=== PATIENT | female | born 1940 | race Caucasian/White ===

== ENCOUNTER 2018-07-12 12:56 | Inpatient (IN) | payer MEDICARE ==
[2018-07-12] MEDS ORDERED: NORMAL SALINE 1000 ML 1,000 ML IV ONE ×2 (13:55→14:31)
[2018-07-12 14:14] LABS: ABSOLUTE BASOPHILS # (AUTO) 0.1 10^3/uL (0.0-0.2); ABSOLUTE EOSINOPHILS # (AUTO) 0.1 10^3/uL (0.0-0.6); ABSOLUTE LYMPHOCYTES (AUTO) 2.4 10^3/uL (0.5-4.7); ABSOLUTE MONOCYTES (AUTO) 0.7 10^3/uL (0.1-1.4); ABSOLUTE NEUT (AUTO) 8.4 10^3/uL (1.7-8.2); BASOPHILS % (AUTO) 0.9 % (0-2); EOSINOPHILS % (AUTO) 1.1 % (0-6); HEMATOCRIT 36.4 % (36.0-47.0); HEMOGLOBIN 12.5 g/dL (12.0-15.5); LYMPHOCYTES % (AUTO) 20.7 % (13-45); MEAN CORPUSCULAR HEMOGLOBIN 29.8 pg (27.0-33.4); MEAN CORPUSCULAR HGB CONC 34.4 g/dL (32.0-36.0); MEAN CORPUSCULAR VOLUME 87 fl (80-97); MONOCYTES % (AUTO) 5.9 % (3-13); PLATELET COUNT 272 10^3/uL (150-450); RED BLOOD COUNT 4.21 10^6/uL (3.72-5.28); RED CELL DISTRIBUTION WIDTH 13.7 % (11.5-14.0); SEGMENTED NEUTROPHILS % (AUTO) 71.4 % (42-78); TOTAL CELLS COUNTED % (AUTO) 100 %; WHITE BLOOD COUNT 11.8 10^3/uL (4.0-10.5)
[2018-07-12 14:31] LABS: ALANINE AMINOTRANSFERASE 17 U/L (9-52); ALBUMIN 4.7 g/dL (3.5-5.0); ALKALINE PHOSPHATASE 81 U/L (38-126); ANION GAP 13 (5-19); ASPARTATE AMINO TRANSFERASE 28 U/L (14-36); BILIRUBIN,DIRECT 0.4 mg/dL (0.0-0.4); BILIRUBIN,TOTAL 0.7 mg/dL (0.2-1.3); BLOOD UREA NITROGEN 32 mg/dL (7-20); CALCIUM 10.3 mg/dL (8.4-10.2); CARBON DIOXIDE 22 mmol/L (22-30); CHLORIDE 105 mmol/L (98-107); GLUCOSE 141 mg/dL (75-110); SODIUM 140.3 mmol/L (137-145); TOTAL PROTEIN 8.1 g/dL (6.3-8.2)
--- NOTE | 2018-07-12 14:32 | ER Document Report ---
ED Blood Pressure Problem - General Chief Complaint: Blood Pressure Problem Stated Complaint: DIZZINESS Time Seen by Provider: 07/12/18 14:17 Notes: 77-year-old female patient emergency department chief complaint of near syncopal episode. Patient states that she went into the doctor's office today to talk to them about some of the diarrhea she has been having. Has a history of C. difficile. Was on therapy on and off for approximately 6 months. Recently had a UTI. Was placed on Bactrim and Cipro. Today, went to the doctor to talk about this and all of a sudden had generalized weakness and almost passed out. Blood pressure was low. Patient sent here for further evaluation. TRAVEL OUTSIDE OF THE [place] IN LAST 30 DAYS: No - HPI Patient complains to provider of: Low blood pressure Onset: Just prior to arrival Onset/Duration: Sudden Quality of pain: No pain Severity: Moderate Pain Level: Denies Problem is: New problem Associated symptoms: Dizziness, Weakness - Related Data Allergies/Adverse Reactions: No Known Allergies Allergy (Verified 03/20/13 14:28) Past Medical History - General Information source: Patient - Social History Smoking Status: Current Every Day Smoker Drug Abuse: None Lives with: Alone Family History: Reviewed & Not Pertinent Patient has suicidal ideation: No Patient has homicidal ideation: No - Past Medical History Cardiac Medical History: Reports: Hx Congestive Heart Failure, Hx Coronary Artery Disease, Hx Heart Attack, Hx Hypertension Renal/ Medical History: Denies: Hx Peritoneal Dialysis GI Medical History: Reports: Hx Gastroesophageal Reflux Disease Past Surgical History: Reports: Hx Cardiac Surgery - CABG, Hx Pacemaker - Defibrillator - Immunizations Hx Diphtheria, Pertussis, Tetanus Vaccination: - unknown Physical Exam - Vital signs Vitals: Resp BP Pulse Ox 17 93/42 L 99 07/12/18 13:18 07/12/18 13:18 07/12/18 13:18 Interpretation: Hypotensive - General General appearance: Appears well, Alert - HEENT Head: Normocephalic, Atraumatic Eyes: Normal Pupils: PERRL - Respiratory Respiratory status: No respiratory distress Chest status: Nontender Breath sounds: Normal Chest palpation: Normal - Cardiovascular Rhythm: Regular Heart sounds: Normal auscultation Murmur: No - Abdominal Inspection: Normal Distension: No distension Bowel sounds: Normal Tenderness: Nontender Organomegaly: No organomegaly - Back Back: Normal, Nontender - Extremities General upper extremity: Normal inspection, Nontender, Normal color, Normal ROM , Normal temperature General lower extremity: Normal inspection, Nontender, Normal color, Normal ROM , Normal temperature, Normal weight bearing. No: Julissa's sign - Neurological Neuro grossly intact: Yes Cognition: Normal Orientation: AAOx4 [place] Coma Scale Eye Opening: Spontaneous [place] Coma Scale Verbal: Oriented [place] Coma Scale Motor: Obeys Commands [place] Coma Scale Total: 15 Speech: Normal Motor strength normal: LUE, RUE, LLE, RLE Sensory: Normal - Psychological Associated symptoms: Normal affect, Normal mood - Skin Skin Temperature: Warm Skin Moisture: Dry Skin Color: Normal Course - Re-evaluation Re-evalutation: 07/12/18 18:45 Patient's presentation is complicated due to the fact that she has had C. difficile. I did initially start her on some Macrobid and oral vancomycin because she has had 2 loose stools while she is in the ER. I have consulted with the hospitalist. At this time we feel that she could have early sepsis so we are starting her on some broad-spectrum antibiotics. She has had 2 L. Will admit at this time in stable condition. 07/12/18 18:47 Laboratory 07/12/18 07/12/18 07/12/18 13:06 13:06 13:06 WBC 11.8 H RBC 4.21 Hgb 12.5 Hct 36.4 MCV 87 MCH 29.8 MCHC 34.4 RDW 13.7 Plt Count 272 Seg Neutrophils % 71.4 Lymphocytes % 20.7 Monocytes % 5.9 Eosinophils % 1.1 Basophils % 0.9 Absolute Neutrophils 8.4 H Absolute Lymphocytes 2.4 Absolute Monocytes 0.7 Absolute Eosinophils 0.1 Absolute Basophils 0.1 Sodium 140.3 Potassium 5.0 Chloride 105 Carbon Dioxide 22 Anion Gap 13 BUN 32 H Creatinine 1.39 H Est GFR ( Amer) 45 L Est GFR (Non-Af Amer) 37 L Glucose 141 H Lactic Acid Calcium 10.3 H Total Bilirubin 0.7 Direct Bilirubin 0.4 Neonat Total Bilirubin Not Reportable Neonat Direct Bilirubin Not Reportable Neonat Indirect Bili Not Reportable AST 28 ALT 17 Alkaline Phosphatase 81 Creatine Kinase 37 CK-MB (CK-2) Troponin I Total Protein 8.1 Albumin 4.7 Urine Color Urine Appearance Urine pH Ur Specific [place] Urine Protein Urine Glucose (UA) Urine Ketones Urine Blood Urine Nitrite Urine Bilirubin Urine Urobilinogen Ur Leukocyte Esterase Urine WBC (Auto) Urine RBC (Auto) U Hyaline Cast (Auto) Urine Bacteria (Auto) Squamous Epi Cells Auto U Non-Squamous Epis Auto Urine Mucus (Auto) Urine Ascorbic Acid 07/12/18 07/12/18 07/12/18 13:06 14:40 15:54 WBC RBC Hgb Hct MCV MCH MCHC RDW Plt Count Seg Neutrophils % Lymphocytes % Monocytes % Eosinophils % Basophils % Absolute Neutrophils Absolute Lymphocytes Absolute Monocytes Absolute Eosinophils Absolute Basophils Sodium Potassium Chloride Carbon Dioxide Anion Gap BUN Creatinine Est GFR ( Amer) Est GFR (Non-Af Amer) Glucose Lactic Acid 1.3 Calcium Total Bilirubin Direct Bilirubin Neonat Total Bilirubin Neonat Direct Bilirubin Neonat Indirect Bili AST ALT Alkaline Phosphatase Creatine Kinase CK-MB (CK-2) 0.85 Troponin I < 0.012 Total Protein Albumin Urine Color YELLOW Urine Appearance CLOUDY Urine pH 5.0 Ur Specific [place] 1.012 Urine Protein NEGATIVE Urine Glucose (UA) NEGATIVE Urine Ketones NEGATIVE Urine Blood NEGATIVE Urine Nitrite NEGATIVE Urine Bilirubin NEGATIVE Urine Urobilinogen NEGATIVE Ur Leukocyte Esterase LARGE H Urine WBC (Auto) 67 Urine RBC (Auto) 3 U Hyaline Cast (Auto) 66 Urine Bacteria (Auto) TRACE Squamous Epi Cells Auto 4 U Non-Squamous Epis Auto 1 Urine Mucus (Auto) FEW Urine Ascorbic Acid NEGATIVE 07/12/18 16:40 WBC RBC Hgb Hct MCV MCH MCHC RDW Plt Count Seg Neutrophils % Lymphocytes % Monocytes % Eosinophils % Basophils % Absolute Neutrophils Absolute Lymphocytes Absolute Monocytes Absolute Eosinophils Absolute Basophils Sodium Potassium Chloride Carbon Dioxide Anion Gap BUN Creatinine Est GFR ( Amer) Est GFR (Non-Af Amer) Glucose Lactic Acid Calcium Total Bilirubin Direct Bilirubin Neonat Total Bilirubin Neonat Direct Bilirubin Neonat Indirect Bili AST ALT Alkaline Phosphatase Creatine Kinase CK-MB (CK-2) Troponin I < 0.012 Total Protein Albumin Urine Color Urine Appearance Urine pH Ur Specific [place] Urine Protein Urine Glucose (UA) Urine Ketones Urine Blood Urine Nitrite Urine Bilirubin Urine Urobilinogen Ur Leukocyte Esterase Urine WBC (Auto) Urine RBC (Auto) U Hyaline Cast (Auto) Urine Bacteria (Auto) Squamous Epi Cells Auto U Non-Squamous Epis Auto Urine Mucus (Auto) Urine Ascorbic Acid Chest X-Ray 07/12/18 14:31 IMPRESSION: No significant interval change. No acute findings. Other findings as noted above. - Vital Signs Vital signs: Temp Pulse Resp BP Pulse Ox 97.6 F 60 19 110/59 L 100 07/12/18 13:46 07/12/18 13:54 07/12/18 18:31 07/12/18 18:31 07/12/18 18:31 - Laboratory Result Diagrams: 07/12/18 13:06 07/12/18 13:06 Laboratory results interpreted by me: 07/12/18 07/12/18 07/12/18 13:06 13:06 15:54 WBC 11.8 H Absolute Neutrophils 8.4 H BUN 32 H Creatinine 1.39 H Est GFR ( Amer) 45 L Est GFR (Non-Af Amer) 37 L Glucose 141 H Calcium 10.3 H Ur Leukocyte Esterase LARGE H - EKG Interpretation by Me Additional EKG results interpreted by me: 07/12/18 18:46 Paced ventricular rhythm rate in the 60s. No signs of ischemia. Critical Care Note - Critical Care Note Total time excluding time spent on procedures (mins): 35 Comments: Hypotension Discharge - Discharge Clinical Impression: Colitis, SIRS (systemic inflammatory response syndrome) Hypotension Qualifiers: Hypotension type: unspecified hypotension type Qualified Code(s): I95.9 - Hypotension, unspecified UTI (urinary tract infection) Qualifiers: Urinary tract infection type: site unspecified Hematuria presence: without hematuria Qualified Code(s): N39.0 - Urinary tract infection, site not specified Condition: Good Disposition: ADMITTED INPATIENT Admitting Provider: Hospitalist Unit Admitted: [facility] Referrals: EL REYNOLDS MD [Primary Care Provider] - Follow up as needed
--- NOTE | 2018-07-12 15:12 | RADIOLOGY REPORT (SQ) ---
EXAM DESCRIPTION: CHEST SINGLE VIEW COMPLETED DATE/TIME: 07/12/2018 3:04 pm REASON FOR STUDY: syncope COMPARISON: May 2014 EXAM PARAMETERS: NUMBER OF VIEWS: One view. TECHNIQUE: Single frontal radiographic view of the chest acquired. RADIATION DOSE: NA LIMITATIONS: None. FINDINGS: LUNGS AND PLEURA: No opacities, masses or pneumothorax. No pleural effusion. MEDIASTINUM AND HILAR STRUCTURES: No masses. Contour normal. HEART AND VASCULAR STRUCTURES: Cardiac silhouette is enlarged and unchanged in configuration. BONES: No acute findings. HARDWARE: AICD device is unchanged in position. Patient is status post median sternotomy. OTHER: No other significant finding. IMPRESSION: No significant interval change. No acute findings. Other findings as noted above. TECHNICAL DOCUMENTATION: JOB ID: [id number] [employer]- All Rights Reserved Reading location - IP/workstation name: [email or web address]
[2018-07-12 15:32] LABS: CREATINE KINASE MB 0.85 ng/mL (<4.55)
[2018-07-12 15:33] LABS: TROPONIN I < 0.012 ng/mL
[2018-07-12 16:12] LABS: APPEARANCE,URINE CLOUDY; BILIRUBIN,URINE NEGATIVE (NEGATIVE); COLOR,URINE YELLOW; GLUCOSE, URINE NEGATIVE (NEGATIVE); KETONES,URINE NEGATIVE (NEGATIVE); LEUKOCYTE ESTERASE,URINE LARGE (NEGATIVE); NITRITE,URINE NEGATIVE (NEGATIVE); PROTEIN,URINE NEGATIVE (NEGATIVE); URINE SPECIFIC GRAVITY 1.012; UROBILINOGEN,URINE NEGATIVE mg/dL (<2.0)
[2018-07-12] MEDS ORDERED: NITROFURANTOIN MONOHYD/M-CRYST 100 MG CAPSULE PO ONE (16:50)
[2018-07-12] MEDS ORDERED: VANCOMYCIN HCL INJ 500 MG VIAL PO ONE (16:50)
[2018-07-12] MEDS ORDERED: ONDANSETRON HCL INJ/PF 4 MG/2 ML SDV IV PRN (18:33)
--- NOTE | 2018-07-12 19:05 | PDOC H&P ---
History of Present Illness Admission Date/PCP: EL REYNOLDS MD History of Present Illness: JYOTSNA GANT is a 77 year old female with history of C. difficile, lipidemia, hypertension, coronary artery disease with status post bypass and pacemaker came to the emergency room with complaints of a passing out at primary care physician's office. According to her she is having the loose stools on and off for the last 1 week, finally she went to see the PCP and according to her she is about to fall onto the ground and somebody next to her hold her to keep her balance she felt dizzy at the time. Denies any loss of consciousness. She said she was diagnosed with C. difficile in April this year again she had a blood work was done in June she was given antibiotics she took it for 3 days and symptoms are resolved but for the last 1 week she has this problem on and off. Denies any nausea vomiting denies any constipation denies any fevers denies any headaches chest pains. In the ER patient was given a 2 L of IV fluids. she was hypotensive with at the time of arrival at the ER. Past Medical History Cardiac Medical History: Reports: Congestive Heart Failure, Coronary Artery Disease, Myocardial Infarction, Hypertension GI Medical History: Reports: Gastroesophageal Reflux Disease Past Surgical History Past Surgical History: Reports: Pacemaker - Defibrillator Social History Lives with: Alone Smoking Status: Current Every Day Smoker - Advance Directive Resuscitation Status: Do Not Resuscitate Family History Family History: Reviewed & Not Pertinent Parental Family History Reviewed: Yes Children Family History Reviewed: Yes Sibling(s) Family History Reviewed.: Yes Medication/Allergy Home Medications: Aspirin 81 mg PO DAILY 03/20/13 Furosemide [Lasix 40 mg Tablet] 40 mg PO QAM #30 tablet 03/20/13 Metoprolol Succinate [Toprol XL 25 mg Tablet] 25 mg PO DAILY 03/20/13 Omeprazole [Prilosec 20 mg Capsule] 20 mg PO DAILY 03/20/13 Ondansetron [Zofran Odt 4 mg Tablet] 2 tab PO Q4HP PRN #15 tab.rapdis 05/12/13 Allergies/Adverse Reactions: No Known Allergies Allergy (Verified 03/20/13 14:28) Review of Systems Constitutional: ABSENT: fever(s), night sweats, weight loss Eyes: ABSENT: visual disturbances Ears: ABSENT: hearing changes Cardiovascular: ABSENT: chest pain, dyspnea on exertion, edema, orthropnea, palpitations Respiratory: ABSENT: cough, hemoptysis Gastrointestinal: PRESENT: bloating, diarrhea Neurological: ABSENT: abnormal gait, abnormal speech, confusion, dizziness, focal weakness, syncope Psychiatric: ABSENT: anxiety, depression, homidical ideation, suicidal ideation Physical Exam Vital Signs: Temp Pulse Resp BP Pulse Ox 97.6 F 60 19 110/59 L 100 07/12/18 13:46 07/12/18 13:54 07/12/18 18:31 07/12/18 18:31 07/12/18 18:31 Intake & Output 07/11/18 07/12/18 07/13/18 06:59 06:59 06:59 Intake Total 1999 Balance 1999 Weight 62.142 kg General appearance: PRESENT: no acute distress Head exam: PRESENT: atraumatic Eye exam: PRESENT: PERRLA Teeth exam: PRESENT: poor dentation Neck exam: ABSENT: carotid bruit, JVD, lymphadenopathy, thyromegaly Respiratory exam: PRESENT: clear to auscultation james. ABSENT: rales, rhonchi, wheezes Cardiovascular exam: PRESENT: RRR. ABSENT: diastolic murmur, rubs, systolic murmur GI/Abdominal exam: PRESENT: normal bowel sounds, soft. ABSENT: distended, guarding, mass, organolmegaly, rebound, tenderness Neurological exam: PRESENT: alert, awake, oriented to person, oriented to place , oriented to time, oriented to situation, CN II-XII grossly intact. ABSENT: motor sensory deficit Psychiatric exam: PRESENT: appropriate affect, normal mood. ABSENT: homicidal ideation, suicidal ideation Results Laboratory Results: 07/12/18 13:06 07/12/18 13:06 07/12/18 07/12/18 07/12/18 13:06 13:06 14:40 WBC 11.8 H RBC 4.21 Hgb 12.5 Hct 36.4 MCV 87 MCH 29.8 MCHC 34.4 RDW 13.7 Plt Count 272 Seg Neutrophils % 71.4 Lymphocytes % 20.7 Monocytes % 5.9 Eosinophils % 1.1 Basophils % 0.9 Absolute Neutrophils 8.4 H Absolute Lymphocytes 2.4 Absolute Monocytes 0.7 Absolute Eosinophils 0.1 Absolute Basophils 0.1 Sodium 140.3 Potassium 5.0 Chloride 105 Carbon Dioxide 22 Anion Gap 13 BUN 32 H Creatinine 1.39 H Est GFR ( Amer) 45 L Est GFR (Non-Af Amer) 37 L Glucose 141 H Lactic Acid 1.3 Calcium 10.3 H Total Bilirubin 0.7 AST 28 ALT 17 Alkaline Phosphatase 81 Total Protein 8.1 Albumin 4.7 Urine Color Urine Appearance Urine pH Ur Specific [place] Urine Protein Urine Glucose (UA) Urine Ketones Urine Blood Urine Nitrite Ur Leukocyte Esterase Urine WBC (Auto) Urine RBC (Auto) 07/12/18 15:54 WBC RBC Hgb Hct MCV MCH MCHC RDW Plt Count Seg Neutrophils % Lymphocytes % Monocytes % Eosinophils % Basophils % Absolute Neutrophils Absolute Lymphocytes Absolute Monocytes Absolute Eosinophils Absolute Basophils Sodium Potassium Chloride Carbon Dioxide Anion Gap BUN Creatinine Est GFR ( Amer) Est GFR (Non-Af Amer) Glucose Lactic Acid Calcium Total Bilirubin AST ALT Alkaline Phosphatase Total Protein Albumin Urine Color YELLOW Urine Appearance CLOUDY Urine pH 5.0 Ur Specific [place] 1.012 Urine Protein NEGATIVE Urine Glucose (UA) NEGATIVE Urine Ketones NEGATIVE Urine Blood NEGATIVE Urine Nitrite NEGATIVE Ur Leukocyte Esterase LARGE H Urine WBC (Auto) 67 Urine RBC (Auto) 3 07/12/18 07/12/18 07/12/18 13:06 13:06 16:40 Creatine Kinase 37 CK-MB (CK-2) 0.85 Troponin I < 0.012 < 0.012 Impressions: Chest X-Ray 07/12/18 14:31 IMPRESSION: No significant interval change. No acute findings. Other findings as noted above. Assessment & Plan - Diagnosis (1) Hypotension Qualifiers: Hypotension type: unspecified hypotension type Qualified Code(s): I95.9 - Hypotension, unspecified Is this a current diagnosis for this admission?: Yes Plan: [birth year]2000 [id number] female with history of C. difficile colitis came to the emergency room with presyncopal symptoms and hypotensive in the ER she was given 2 L of IV fluids with improvement the blood pressures. I started on antibiotics p.o. vancomycin 125 mg 4 times a day and Zosyn 3.37 g every 6 hours IV. She was also started on normal saline at 75 cc/h. Lactic acid level is 1.3 today. Blood cultures and stool cultures are pending. Culture is pending. (2) Colitis Is this a current diagnosis for this admission?: Yes Plan: 07/12/2018 patient has history of C. difficile colitis, came in with severe diarrhea. Stool for C. difficile is pending. She was started on p.o. vancomycin 125 mg 4 times a day. (3) Acute renal failure Is this a current diagnosis for this admission?: Yes Plan: 07/12/2018-patient creatinine today is 1.39. Her baseline creatinine 0.8. AKA may be secondary to hypotension. possible C. difficile colitis may be a contributing factor. (4) Coronary artery disease involving autologous artery coronary bypass graft Is this a current diagnosis for this admission?: Yes Plan: 07/12/2018 patient is given the history of coronary artery disease status post 5 bypasses in 2012. Patient is asymptomatic. Denies any chest pains. (5) Pacemaker Is this a current diagnosis for this admission?: Yes Plan: 07/12/2018-and has history of pacemaker pacemaker present on the left side of the chest. Patient is not sure why she has a pacemaker she think probably because of coronary artery disease with bypass. - Time Time Spent: 30 to 50 Minutes Smoking Cessation Education: 3 to 10 minutes Medications reviewed and adjusted accordingly: Yes Anticipated discharge: Home
--- NOTE | 2018-07-12 19:17 | RADIOLOGY REPORT (SQ) ---
EXAM DESCRIPTION: CT HEAD WITHOUT COMPLETED DATE/TIME: 07/12/2018 7:08 pm REASON FOR STUDY: syncope COMPARISON: None. TECHNIQUE: Axial images acquired through the brain without intravenous contrast. Images reviewed wi th bone, brain and subdural windows. Additional sagittal and coronal reconstructions were generated. Images stored on PACS. All CT scanners at this facility use dose modulation, iterative reconstruction, and/or weight based d osing when appropriate to reduce radiation dose to as low as reasonably achievable (ALARA). [facility]: Dose Right [facility]: CareDose [facility]: Dose Right [facility]: Teradose 4D [facility]: Placed RADIATION DOSE: CT Rad equipment meets quality standard of care and radiation dose reduction techniq ues were employed. CTDIvol: 48.6 mGy. DLP: 902 mGy-cm. mGy. LIMITATIONS: None. FINDINGS: VENTRICLES: Prominent. CEREBRUM: No masses. No hemorrhage. No midline shift. Areas of low density in the white matter mos t likely due to chronic micro-vascular ischemic change. No evidence for acute infarction. CEREBELLUM: No masses. No hemorrhage. No alteration of density. No evidence for acute infarction. EXTRAAXIAL SPACES: Mild age-related involutional change. No fluid collections. No masses. ORBITS AND GLOBE: No intra- or extraconal masses. Normal contour of globe without masses. CALVARIUM: No fracture. PARANASAL SINUSES: No fluid or mucosal thickening. SOFT TISSUES: No mass or hematoma. OTHER: No other significant finding. IMPRESSION: MILD CHRONIC CHANGES OF ATROPHY AND MICROVASCULAR ISCHEMIA. NO ACUTE PROCESS. EVIDENCE OF ACUTE STROKE: NO. TECHNICAL DOCUMENTATION: JOB ID: [id number] Quality ID # [id number]: Final reports with documentation of one or more dose reduction techniques (e.g., Au tomated exposure control, adjustment of the mA and/or kV according to patient size, use of iterative reconstruction technique) 2010 [employer]- All Rights Reserved Reading location - IP/workstation name: [email or web address]
[2018-07-12] MEDS: NORMAL SALINE 1000 ML 1,000 ML IV PRN (19:41)
--- NOTE | 2018-07-12 20:58 | EKG REPORT ---
SEVERITY:- ABNORMAL ECG - ATRIAL-PACED COMPLEXES FIRST DEGREE AV BLOCK NONSPECIFIC INTRAVENTRICULAR CONDUCTION DELAY MINIMAL ST DEPRESSION, ANTEROLATERAL LEADS : Confirmed by: Darleen Porter MD 12-Jul-2018 20:57:32
[2018-07-12] MEDS: FAMOTIDINE 20 MG TABLET PO SCH (22:25)
[2018-07-12] MEDS: PIPERACILLIN SODIUM/TAZOBACTAM 3.375 GM in NORMAL SALINE 100 ML IV SCH (22:26)
[2018-07-12] MEDS ORDERED: VANCOMYCIN HCL INJ 500 MG VIAL ONE (23:24)
[2018-07-13] MEDS ORDERED: PIPERACILLIN/TAZOBACTAM 3.375 GM VIAL IV SCH
[2018-07-13] MEDS: VANCOMYCIN HCL INJ 1000 MG VIAL ONE ×2 (02:50→03:09)
[2018-07-13] MEDS ORDERED: VANCOMYCIN HCL INJ 500 MG VIAL PO SCH ×2 (03:00)
[2018-07-13] MEDS: PIPERACILLIN SODIUM/TAZOBACTAM 3.375 GM in NORMAL SALINE 100 ML IV SCH ×2 (03:10→08:47)
[2018-07-13] MEDS ORDERED: DEXTROSE 50%-WATER SYRINGE 25 GM/50 ML DOSE IV PRN (04:07)
[2018-07-13] MEDS ORDERED: DEXTROSE 50%-WATER SYRINGE 12.5 GM/25 ML DOSE IV PRN (04:07)
[2018-07-13] MEDS ORDERED: INSULIN LISPRO 100 UNIT/ML 3 ML VIAL SUBCUT PRN (04:07)
[2018-07-13] MEDS ORDERED: DEXTROSE 40% GEL 15 GM TUBE PO PRN (04:07)
[2018-07-13] MEDS ORDERED: DEXTROSE 40% GEL 15 GM TUBE X 2 PO PRN (04:07)
[2018-07-13] MEDS ORDERED: GLUCAGON,HUMAN RECOMB 1 MG INJ IM PRN (04:07)
--- NOTE | 2018-07-13 08:59 | PDOC PROGRESS REPORT ---
Subjective Progress Note for:: 07/13/18 Subjective:: 07/13/1999 [id number] female came to the emergency room with diarrhea, she has history of C. difficile. There is a concern about early sepsis at the time of admission. Patient was also hypotensive in the ER she was given 2 L of IV fluids in the ER prior to admission. Patient is asymptomatic. Blood pressures are still low. She still have the loose stools for C. difficile is negative. Afebrile. Reason For Visit: HYPOTENSION Physical Exam Vital Signs: Temp Pulse Resp BP Pulse Ox 98.0 F 79 16 107/64 100 07/13/18 07:21 07/13/18 07:21 07/13/18 07:21 07/13/18 07:21 07/13/18 07:21 Intake & Output 07/12/18 07/13/18 07/14/18 06:59 06:59 06:59 Intake Total 1116 Output Total 600 Balance 516 Weight 65.9 kg General appearance: PRESENT: no acute distress Head exam: PRESENT: atraumatic Eye exam: PRESENT: PERRLA Mouth exam: PRESENT: moist Neck exam: ABSENT: carotid bruit, JVD, lymphadenopathy, thyromegaly Respiratory exam: PRESENT: clear to auscultation james. ABSENT: rales, rhonchi, wheezes Cardiovascular exam: PRESENT: RRR. ABSENT: diastolic murmur, rubs, systolic murmur GI/Abdominal exam: PRESENT: normal bowel sounds, soft. ABSENT: distended, guarding, mass, organolmegaly, rebound, tenderness Neurological exam: PRESENT: alert, awake, oriented to person, oriented to place , oriented to time, oriented to situation, CN II-XII grossly intact. ABSENT: motor sensory deficit Psychiatric exam: PRESENT: appropriate affect, normal mood. ABSENT: homicidal ideation, suicidal ideation Results Laboratory Results: 07/12/18 07/12/18 07/13/18 20:20 20:20 02:52 Creatine Kinase 35 42 Troponin I < 0.012 07/13/18 02:52 Creatine Kinase Troponin I < 0.012 Impressions: Head CT 07/12/18 00:00 IMPRESSION: MILD CHRONIC CHANGES OF ATROPHY AND MICROVASCULAR ISCHEMIA. NO ACUTE PROCESS. EVIDENCE OF ACUTE STROKE: NO. Chest X-Ray 07/12/18 14:31 IMPRESSION: No significant interval change. No acute findings. Other findings as noted above. Assessment & Plan - Diagnosis (1) Hypotension Qualifiers: Hypotension type: unspecified hypotension type Qualified Code(s): I95.9 - Hypotension, unspecified Is this a current diagnosis for this admission?: Yes Plan: 07/12/2018 77-year-old female with history of C. difficile colitis came to the emergency room with presyncopal symptoms and hypotensive in the ER she was given 2 L of IV fluids with improvement the blood pressures. I started on antibiotics p.o. vancomycin 125 mg 4 times a day and Zosyn 3.37 g every 6 hours IV. She was also started on normal saline at 75 cc/h. Lactic acid level is 1.3 today. Blood cultures and stool cultures are pending. Culture is pending. [id number] female admitted with diarrhea and hypotension she is getting IV fluids normal saline 70 cc/h her blood pressure is 107/64. Heart rate is 79. Patient is complaining of still little bit of dizziness. Continues to have loose stools but states much better. C. difficile was negative. (2) Colitis Is this a current diagnosis for this admission?: Yes Plan: 07/12/2018 patient has history of C. difficile colitis, came in with severe diarrhea. Stool for C. difficile is pending. She was started on p.o. vancomycin 125 mg 4 times a day. 07/13/2018-patient is still complaining of loose stools C. difficile was negative. She is afebrile. We are going to discontinue p.o. vancomycin. (3) Acute renal failure Is this a current diagnosis for this admission?: Yes Plan: 07/12/2018-patient creatinine today is 1.39. Her baseline creatinine 0.8. AKA may be secondary to hypotension. possible C. difficile colitis may be a contributing factor. 07/13/2018 admission creatinine is 1.39 is about the baseline. Waiting for the creatinine levels today. AK I may be secondary to dehydration and hypotension. (4) Coronary artery disease involving autologous artery coronary bypass graft Is this a current diagnosis for this admission?: Yes Plan: 07/12/2018 patient is given the history of coronary artery disease status post 5 bypasses in 2012. Patient is asymptomatic. Denies any chest pains. 07/13/2018-patient denies any chest pain. Asymptomatic. Will continue the present management. (5) Pacemaker Is this a current diagnosis for this admission?: Yes Plan: 07/12/2018-and has history of pacemaker pacemaker present on the left side of the chest. Patient is not sure why she has a pacemaker she think probably because of coronary artery disease with bypass. 07/13/2018 patient given the history of pacemaker. - Time Time Spent with patient: 15-24 minutes Medications reviewed and adjusted accordingly: Yes Anticipated discharge: Home
[2018-07-13] MEDS: METOPROLOL TARTRATE 50 MG TABLET PO SCH ×2 (09:21→21:20)
[2018-07-13] MEDS: ENOXAPARIN SODIUM INJ 40 MG/0.4 ML DISP.SYRIN SUBCUT SCH (09:21)
[2018-07-13] MEDS: FAMOTIDINE 20 MG TABLET PO SCH ×2 (09:21→21:20)
[2018-07-13] MEDS: ASPIRIN 81 MG TABLET, CHEWABLE PO SCH (09:21)
[2018-07-13 09:47] LABS: HEMATOCRIT 28.8 % (36.0-47.0); HEMOGLOBIN 9.8 g/dL (12.0-15.5); RED BLOOD COUNT 3.32 10^6/uL (3.72-5.28); WHITE BLOOD COUNT 6.9 10^3/uL (4.0-10.5)
[2018-07-13 09:48] LABS: ABSOLUTE BASOPHILS # (AUTO) 0.1 10^3/uL (0.0-0.2); ABSOLUTE EOSINOPHILS # (AUTO) 0.1 10^3/uL (0.0-0.6); ABSOLUTE LYMPHOCYTES (AUTO) 2.6 10^3/uL (0.5-4.7); ABSOLUTE MONOCYTES (AUTO) 0.5 10^3/uL (0.1-1.4); ABSOLUTE NEUT (AUTO) 3.5 10^3/uL (1.7-8.2); BASOPHILS % (AUTO) 0.9 % (0-2); LYMPHOCYTES % (AUTO) 38.2 % (13-45); MEAN CORPUSCULAR HEMOGLOBIN 29.4 pg (27.0-33.4); MEAN CORPUSCULAR HGB CONC 33.8 g/dL (32.0-36.0); MEAN CORPUSCULAR VOLUME 87 fl (80-97); MONOCYTES % (AUTO) 7.8 % (3-13); PLATELET COUNT 202 10^3/uL (150-450); RED CELL DISTRIBUTION WIDTH 13.8 % (11.5-14.0); SEGMENTED NEUTROPHILS % (AUTO) 51.1 % (42-78); TOTAL CELLS COUNTED % (AUTO) 100 %
[2018-07-13] MEDS ORDERED: NORMAL SALINE 250 ML IV PRN ×2 (09:52)
[2018-07-13 09:57] LABS: ALANINE AMINOTRANSFERASE 14 U/L (9-52); ALBUMIN 3.8 g/dL (3.5-5.0); ALKALINE PHOSPHATASE 70 U/L (38-126); ANION GAP 11 (5-19); ASPARTATE AMINO TRANSFERASE 21 U/L (14-36); BILIRUBIN,DIRECT 0.3 mg/dL (0.0-0.4); BILIRUBIN,TOTAL 0.7 mg/dL (0.2-1.3); BLOOD UREA NITROGEN 22 mg/dL (7-20); CALCIUM 9.5 mg/dL (8.4-10.2); CARBON DIOXIDE 18 mmol/L (22-30); CHLORIDE 113 mmol/L (98-107); GLUCOSE 91 mg/dL (75-110); POTASSIUM 4.1 mmol/L (3.6-5.0); SODIUM 142.4 mmol/L (137-145); TOTAL PROTEIN 6.7 g/dL (6.3-8.2)
[2018-07-13] MEDS ORDERED: METOPROLOL SUCCINATE 25 MG TAB.SR.24H PO SCH (10:00)
[2018-07-13] MEDS ORDERED: ATORVASTATIN CALCIUM 20 MG TABLET PO SCH ×2 (10:00→22:00)
[2018-07-13] MEDS: NORMAL SALINE 1000 ML 1,000 ML IV PRN (15:29)
[2018-07-13 22:18] LABS: ABSOLUTE BASOPHILS # (AUTO) 0.1 10^3/uL (0.0-0.2); ABSOLUTE EOSINOPHILS # (AUTO) 0.1 10^3/uL (0.0-0.6); ABSOLUTE LYMPHOCYTES (AUTO) 2.5 10^3/uL (0.5-4.7); ABSOLUTE MONOCYTES (AUTO) 0.6 10^3/uL (0.1-1.4); ABSOLUTE NEUT (AUTO) 3.2 10^3/uL (1.7-8.2); BASOPHILS % (AUTO) 1.1 % (0-2); EOSINOPHILS % (AUTO) 2.3 % (0-6); HEMATOCRIT 30.5 % (36.0-47.0); HEMOGLOBIN 10.7 g/dL (12.0-15.5); LYMPHOCYTES % (AUTO) 38.9 % (13-45); MEAN CORPUSCULAR HEMOGLOBIN 30.3 pg (27.0-33.4); MEAN CORPUSCULAR VOLUME 87 fl (80-97); MONOCYTES % (AUTO) 8.5 % (3-13); PLATELET COUNT 152 10^3/uL (150-450); RED BLOOD COUNT 3.53 10^6/uL (3.72-5.28); SEGMENTED NEUTROPHILS % (AUTO) 49.2 % (42-78); TOTAL CELLS COUNTED % (AUTO) 100 %; WHITE BLOOD COUNT 6.5 10^3/uL (4.0-10.5)
[2018-07-14 05:14] LABS: ABSOLUTE BASOPHILS # (AUTO) 0.1 10^3/uL (0.0-0.2); ABSOLUTE EOSINOPHILS # (AUTO) 0.1 10^3/uL (0.0-0.6); ABSOLUTE LYMPHOCYTES (AUTO) 2.3 10^3/uL (0.5-4.7); ABSOLUTE MONOCYTES (AUTO) 0.6 10^3/uL (0.1-1.4); ABSOLUTE NEUT (AUTO) 3.3 10^3/uL (1.7-8.2); BASOPHILS % (AUTO) 1.1 % (0-2); EOSINOPHILS % (AUTO) 2.3 % (0-6); HEMATOCRIT 30.6 % (36.0-47.0); HEMOGLOBIN 10.7 g/dL (12.0-15.5); LYMPHOCYTES % (AUTO) 36.4 % (13-45); MEAN CORPUSCULAR HEMOGLOBIN 30.2 pg (27.0-33.4); MEAN CORPUSCULAR HGB CONC 34.9 g/dL (32.0-36.0); MEAN CORPUSCULAR VOLUME 87 fl (80-97); MONOCYTES % (AUTO) 9.4 % (3-13); PLATELET COUNT 137 10^3/uL (150-450); RED BLOOD COUNT 3.54 10^6/uL (3.72-5.28); SEGMENTED NEUTROPHILS % (AUTO) 50.8 % (42-78); TOTAL CELLS COUNTED % (AUTO) 100 %; WHITE BLOOD COUNT 6.4 10^3/uL (4.0-10.5)
[2018-07-14 05:49] LABS: BLOOD UREA NITROGEN 15 mg/dL (7-20); GLUCOSE 94 mg/dL (75-110)
[2018-07-14 05:50] LABS: ALANINE AMINOTRANSFERASE 16 U/L (9-52); ALBUMIN 3.2 g/dL (3.5-5.0); ALKALINE PHOSPHATASE 62 U/L (38-126); ANION GAP 8 (5-19); ASPARTATE AMINO TRANSFERASE 19 U/L (14-36); BILIRUBIN,DIRECT 0.2 mg/dL (0.0-0.4); BILIRUBIN,TOTAL 0.7 mg/dL (0.2-1.3); CARBON DIOXIDE 20 mmol/L (22-30); CHLORIDE 114 mmol/L (98-107); POTASSIUM 4.5 mmol/L (3.6-5.0); SODIUM 141.5 mmol/L (137-145); TOTAL PROTEIN 5.7 g/dL (6.3-8.2)
[2018-07-14] MEDS: NORMAL SALINE 1000 ML 1,000 ML IV PRN (08:11)
--- NOTE | 2018-07-14 08:22 | PDOC DISCHARGE SUMMARY ---
General - Admit/Disc Date/PCP Admission Date/Primary Care Provider: 07/12/18 18:47 EL REYNOLDS MD Discharge Date: 07/14/18 - Discharge Diagnosis (1) Hypotension Is this a current diagnosis for this admission?: Yes Summary: 07/14/[id number]-ckmd-old female with history of colitis secondary to C. difficile came to the emergency room on 07/12/2018 with complaints of severe diarrhea and passing out at PCPs office she was found to be hypotensive in the emergency room she was given 2 L of fluid. She was also found to be an AKA at that time. The hospital stay she got IV fluids 75 cc/h. Lactic acid was done and it was 1.3. The cultures came back negative. Probably hypotension secondary to diarrhea. Blood pressure today is 102/56. Advised her to not to take Lasix at home. No dizzy spells no presyncopal symptoms during the hospital stay.2017 77-year-old female with history of C. difficile colitis came to the emergency room with presyncopal symptoms and hypotensive in the ER she was given 2 L of IV fluids with improvement the blood pressures. I started on antibiotics p.o. vancomycin 125 mg 4 times a day and Zosyn 3.37 g every 6 hours IV. She was also started on normal saline at 75 cc/h. Lactic acid level is 1.3 today. Blood cultures and stool cultures are pending. Culture is pending. 07/13/[id number]-eouz-old female admitted with diarrhea and hypotension she is getting IV fluids normal saline 70 cc/h her blood pressure is 107/64. Heart rate is 79. Patient is complaining of still little bit of dizziness. Continues to have loose stools but states much better. C. difficile was negative. (2) Colitis Is this a current diagnosis for this admission?: Yes Summary: 07/12/2018 patient has history of C. difficile colitis, came in with severe diarrhea. Stool for C. difficile is pending. She was started on p.o. vancomycin 125 mg 4 times a day. 07/13/2018 stool for C. difficile came back negative. Initially she was started on vancomycin 125 mg every 6 hours after 24 hours the p.o. vancomycin was discontinued. Her diarrhea resolved during the hospital stay. (3) Acute renal failure Is this a current diagnosis for this admission?: Yes Summary: 07/12/2018-patient creatinine today is 1.39. Her baseline creatinine 0.8. AKA may be secondary to hypotension. possible C. difficile colitis may be a contributing factor. 07/13/2018 admission creatinine is 1.39 is about the baseline. Waiting for the creatinine levels today. AK I may be secondary to dehydration and hypotension. 07/14/2018 the creatinine on admission is 1.39. IV fluids it was improved to 0.77 today. Acute kidney injury resolved. AKA may be secondary to severe diarrhea. (4) Coronary artery disease involving autologous artery coronary bypass graft Is this a current diagnosis for this admission?: Yes Summary: 07/12/2018 patient is given the history of coronary artery disease status post 5 bypasses in 2012. Patient is asymptomatic. Denies any chest pains. 07/13/2018-patient denies any chest pain. Asymptomatic. Will continue the present management. 07/14/2018 patient has history of coronary artery disease status post 5 bypasses in 2012. No complaints of chest pains during the hospital stay. (5) Pacemaker Is this a current diagnosis for this admission?: Yes Summary: 07/12/2018-and has history of pacemaker pacemaker present on the left side of the chest. Patient is not sure why she has a pacemaker she think probably because of coronary artery disease with bypass. 07/13/2018 patient given the history of pacemaker. 07/14/2018 patient has pacemaker Of the Chest. No Abnormal EKGs during the Hospital Stay under No Abnormal Rhythm on Telemetry. (6) Hypomagnesemia Is this a current diagnosis for this admission?: Yes Summary: 07/14/2018-since magnesium level is 1.4 today. Give 2 g of IV magnesium before discharge. - Additional Information Resuscitation Status: Do Not Resuscitate Discharge Diet: Diabetic Discharge Activity: Activity As Tolerated Home Medications: Atorvastatin Calcium [Lipitor 20 mg Tablet] 20 mg PO DAILY 07/12/18 Lisinopril 20 mg PO DAILY 07/12/18 Metformin HCl [Metformin HCl ER] 500 mg PO DAILY 07/12/18 Metoprolol Tartrate [Lopressor 50 mg Tablet] 50 mg PO Q12 07/12/18 Atorvastatin Calcium [Lipitor 20 mg Tablet] 20 mg PO QHS tablet 07/14/18 History of Present Illness History of Present Illness: JYOTSNA GANT is a 77 year old female with history of C. difficile, lipidemia, hypertension, coronary artery disease with status post bypass and pacemaker came to the emergency room with complaints of a passing out at primary care physician's office. According to her she is having the loose stools on and off for the last 1 week, finally she went to see the PCP and according to her she is about to fall onto the ground and somebody next to her hold her to keep her balance she felt dizzy at the time. Denies any loss of consciousness. She said she was diagnosed with C. difficile in April this year again she had a blood work was done in June she was given antibiotics she took it for 3 days and symptoms are resolved but for the last 1 week she has this problem on and off. Denies any nausea vomiting denies any constipation denies any fevers denies any headaches chest pains. In the ER patient was given a 2 L of IV fluids. she was hypotensive with at the time of arrival at the ER. Hospital Course Hospital Course: 07/14/[id number]-mavb-old female came with history of loose stools admitted on 07/2018 prior to ER arrival she went to PCPs office there she had syncopal symptoms but she did not fell, somebody standing next to her hold her not fell onto the ground . In the ER she was found to be hypotensive on the ER physician also thought about possible sepsis and she has AK I readmitted her in the hospital for IV antibiotic therapy and IV fluids. We also started her on p.o. vancomycin for C. difficile because of the history of C. difficile. The stool for C. difficile came back negative p.o. vancomycin was discontinued. With IV fluids Jefry resolved resolved. During the hospital stay patient's hemoglobin dropped from 12.5-9.6. She got 1 unit of blood transfusion. Hemoglobin improved to 10.7. The blood cultures urine cultures was done during the hospital stay the came back negative so far. Magnesium level is 1.4 today V going to get 2 g of magnesium before discharge. Advised her to follow-up with primary care physician. She states she is going to see Dr. Polanco. Physical Exam Vital Signs: Temp Pulse Resp BP Pulse Ox 97.8 F 58 L 20 102/52 L 100 07/14/18 03:36 07/14/18 03:36 07/14/18 03:36 07/14/18 03:46 07/14/18 03:36 Intake & Output 07/13/18 07/14/18 07/15/18 06:59 06:59 06:59 Intake Total 1116 1096 Output Total 600 350 Balance 516 746 Weight 65.9 kg General appearance: PRESENT: no acute distress Head exam: PRESENT: atraumatic Eye exam: PRESENT: PERRLA Mouth exam: PRESENT: moist Neck exam: ABSENT: carotid bruit, JVD, lymphadenopathy, thyromegaly Cardiovascular exam: PRESENT: RRR. ABSENT: diastolic murmur, rubs, systolic murmur Pulses: PRESENT: normal dorsalis pedis pul GI/Abdominal exam: PRESENT: normal bowel sounds, soft. ABSENT: distended, guarding, mass, organolmegaly, rebound, tenderness Neurological exam: PRESENT: alert, awake, oriented to person, oriented to place , oriented to time, oriented to situation, CN II-XII grossly intact. ABSENT: motor sensory deficit Psychiatric exam: PRESENT: appropriate affect, normal mood. ABSENT: homicidal ideation, suicidal ideation Results Laboratory Results: 07/14/18 04:14 07/14/18 04:14 07/13/18 07/13/18 07/13/18 08:40 08:40 13:59 WBC 6.9 RBC 3.32 L Hgb 9.8 L D Hct 28.8 L MCV 87 MCH 29.4 MCHC 33.8 RDW 13.8 Plt Count 202 Seg Neutrophils % 51.1 Lymphocytes % 38.2 Monocytes % 7.8 Eosinophils % 2.0 Basophils % 0.9 Absolute Neutrophils 3.5 Absolute Lymphocytes 2.6 Absolute Monocytes 0.5 Absolute Eosinophils 0.1 Absolute Basophils 0.1 Sodium 142.4 Potassium 4.1 Chloride 113 H Carbon Dioxide 18 L Anion Gap 11 BUN 22 H Creatinine 0.89 Est GFR ( Amer) > 60 Est GFR (Non-Af Amer) > 60 Glucose 91 Calcium 9.5 Magnesium 1.5 L Total Bilirubin 0.7 AST 21 ALT 14 Alkaline Phosphatase 70 Total Protein 6.7 Albumin 3.8 Stool Occult Blood Blood Type B POSITIVE Antibody Screen NEGATIVE 07/13/18 07/14/18 07/14/18 21:52 04:14 04:14 WBC 6.5 6.4 RBC 3.53 L 3.54 L Hgb 10.7 L 10.7 L Hct 30.5 L 30.6 L MCV 87 87 MCH 30.3 30.2 MCHC 35.0 34.9 RDW 14.0 14.0 Plt Count 152 137 L Seg Neutrophils % 49.2 50.8 Lymphocytes % 38.9 36.4 Monocytes % 8.5 9.4 Eosinophils % 2.3 2.3 Basophils % 1.1 1.1 Absolute Neutrophils 3.2 3.3 Absolute Lymphocytes 2.5 2.3 Absolute Monocytes 0.6 0.6 Absolute Eosinophils 0.1 0.1 Absolute Basophils 0.1 0.1 Sodium 141.5 Potassium 4.5 Chloride 114 H Carbon Dioxide 20 L Anion Gap 8 BUN 15 Creatinine 0.77 Est GFR ( Amer) > 60 Est GFR (Non-Af Amer) > 60 Glucose 94 Calcium 9.0 Magnesium 1.4 L Total Bilirubin 0.7 AST 19 ALT 16 Alkaline Phosphatase 62 Total Protein 5.7 L Albumin 3.2 L Stool Occult Blood Blood Type Antibody Screen 07/14/18 07:35 WBC RBC Hgb Hct MCV MCH MCHC RDW Plt Count Seg Neutrophils % Lymphocytes % Monocytes % Eosinophils % Basophils % Absolute Neutrophils Absolute Lymphocytes Absolute Monocytes Absolute Eosinophils Absolute Basophils Sodium Potassium Chloride Carbon Dioxide Anion Gap BUN Creatinine Est GFR ( Amer) Est GFR (Non-Af Amer) Glucose Calcium Magnesium Total Bilirubin AST ALT Alkaline Phosphatase Total Protein Albumin Stool Occult Blood POSITIVE Blood Type Antibody Screen 07/12/18 07/12/18 07/13/18 20:20 20:20 02:52 Creatine Kinase 35 42 Troponin I < 0.012 07/13/18 07/13/18 07/13/18 02:52 08:20 08:20 Creatine Kinase 57 Troponin I < 0.012 < 0.012 Impressions: Head CT 07/12/18 00:00 IMPRESSION: MILD CHRONIC CHANGES OF ATROPHY AND MICROVASCULAR ISCHEMIA. NO ACUTE PROCESS. EVIDENCE OF ACUTE STROKE: NO. Chest X-Ray 07/12/18 14:31 IMPRESSION: No significant interval change. No acute findings. Other findings as noted above. Qualifiers - * PATIENT BEING DISCHARGED WITH ANY OF THE FOLLOWING DIAGNOSIS: No VTE patient discharged on overlapping Therapy?: Yes
[2018-07-14] MEDS: MAGNESIUM SULFATE/D5W 1 GM/100 ML RTUPB IV SCH ×2 (09:26→10:55)
[2018-07-14] MEDS: METOPROLOL TARTRATE 50 MG TABLET PO SCH (09:51)
[2018-07-14] MEDS: FAMOTIDINE 20 MG TABLET PO SCH (09:54)
[2018-07-14] MEDS: ENOXAPARIN SODIUM INJ 40 MG/0.4 ML DISP.SYRIN SUBCUT SCH (09:55)
[2018-07-14] MEDS: ASPIRIN 81 MG TABLET, CHEWABLE PO SCH (09:55)
[2018-07-14 13:46] VITALS: BP 102/52
== END 2018-07-14 14:03 | disposition home health service (06) | DRG 315 ==
LOC: ER 12:56 → EH 18:47 → 3N 20:10
PROVIDERS: ADMIT Family Medicine; ATTEND Family Medicine
PROC: 30233N1 Transfusion of Nonautologous Red Blood Cells into Peripheral Vein, Percutaneous Approach (ICD-10-PCS; principal; 2018-07-13)
DX: I95.9 Hypotension, unspecified (principal); E87.1 Hypo-osmolality and hyponatremia; N17.9 Acute kidney failure, unspecified; I25.810 Atherosclerosis of coronary artery bypass graft(s) without angina pectoris; N39.0 Urinary tract infection, site not specified; E83.42 Hypomagnesemia; Z66 Do not resuscitate; I50.9 Heart failure, unspecified; I10 Essential (primary) hypertension; K21.9 Gastro-esophageal reflux disease without esophagitis; Z60.2 Problems related to living alone; F17.210 Nicotine dependence, cigarettes, uncomplicated; E86.0 Dehydration; R19.7 Diarrhea, unspecified; I25.2 Old myocardial infarction; Z79.899 Other long term (current) drug therapy; Z95.810 Presence of automatic (implantable) cardiac defibrillator; Z79.82 Long term (current) use of aspirin
CPT/HCPCS: 36415; 36430; 70450; 71045; 80053; 81001; 82272; 82550; 82553; 82962; 83605; 83735; 84484; 85025; 86850; 86900; 86901; 86920; 87040; 87086; 87493; 93005; 93010; 96360; 96361; 99291; G8978-GP; G8979-GP; J1650; J2543; J3370; J3475; J7030; J8499; P9016

== ENCOUNTER 2020-01-06 04:34 | Emergency (ER) | payer MEDICARE ==
[2020-01-06 06:31] LABS: ABSOLUTE MONOCYTES (AUTO) 0.6 10^3/uL (0.1-1.4); ABSOLUTE NEUT (AUTO) 6.3 10^3/uL (1.7-8.2); BASOPHILS % (AUTO) 0.6 % (0-2); EOSINOPHILS % (AUTO) 0.1 % (0-6); HEMATOCRIT 37.6 % (36.0-47.0); LYMPHOCYTES % (AUTO) 12.6 % (13-45); MEAN CORPUSCULAR VOLUME 88 fl (80-97); MONOCYTES % (AUTO) 7.2 % (3-13); PLATELET COUNT 145 10^3/uL (150-450); RED BLOOD COUNT 4.29 10^6/uL (3.72-5.28); RED CELL DISTRIBUTION WIDTH 17.5 % (11.5-14.0); SEGMENTED NEUTROPHILS % (AUTO) 79.5 % (42-78); TOTAL CELLS COUNTED % (AUTO) 100 %; WHITE BLOOD COUNT 7.9 10^3/uL (4.0-10.5)
[2020-01-06 06:46] LABS: APPEARANCE,URINE SLIGHTLY-CLOUDY; BILIRUBIN,URINE NEGATIVE (NEGATIVE); GLUCOSE, URINE NEGATIVE (NEGATIVE); KETONES,URINE NEGATIVE (NEGATIVE); LEUKOCYTE ESTERASE,URINE SMALL (NEGATIVE); NITRITE,URINE NEGATIVE (NEGATIVE); PROTEIN,URINE 100 mg/dL (NEGATIVE); URINE SPECIFIC GRAVITY 1.027
[2020-01-06 06:47] LABS: COLOR,URINE DARK YELLOW
[2020-01-06 06:49] LABS: ALBUMIN 3.9 g/dL (3.5-5.0); ALKALINE PHOSPHATASE 184 U/L (38-126); ANION GAP 8 (5-19); ASPARTATE AMINO TRANSFERASE 144 U/L (14-36); BILIRUBIN,DIRECT 1.7 mg/dL (0.0-0.4); BILIRUBIN,TOTAL 3.6 mg/dL (0.2-1.3); BLOOD UREA NITROGEN 23 mg/dL (7-20); CALCIUM 8.8 mg/dL (8.4-10.2); CARBON DIOXIDE 24 mmol/L (22-30); CHLORIDE 106 mmol/L (98-107); GLUCOSE 180 mg/dL (75-110); POTASSIUM 3.6 mmol/L (3.6-5.0); TOTAL PROTEIN 7.2 g/dL (6.3-8.2)
--- NOTE | 2020-01-06 06:53 | RADIOLOGY REPORT (SQ) ---
CHEST 1 VIEW on 01/06/2020 at 5:44 AM CLINICAL INDICATION: Shortness of breath, chest pain COMPARISON: 07/12/2018 FINDINGS: The patient is status post median sternotomy. 2-lead left subclavian AICD device is noted in place. Cardiomegaly is noted. Vascular calcification is noted in the aorta. The lungs are clear. Pulmonary vascularity is within normal limits. IMPRESSION: Cardiomegaly with no acute pulmonary disease.
[2020-01-06] MEDS ORDERED: FUROSEMIDE INJ/PF 40 MG/4 ML SDV IV ONE (08:05)
[2020-01-06] MEDS ORDERED: NITROGLYCERIN 2% OINTMENT 1 GM PACKET TP ONE (08:06)
[2020-01-06] MEDS ORDERED: ASPIRIN 81 MG TABLET, CHEWABLE PO ONE (08:06)
--- NOTE | 2020-01-06 10:49 | RADIOLOGY REPORT (SQ) ---
EXAM DESCRIPTION: U/S ABDOMEN COMPLETE W/DOPPLER IMAGES COMPLETED DATE/TIME: 01/06/2020 10:39 am REASON FOR STUDY: elevated Liver function tests/congestive heart laura COMPARISON: None. TECHNIQUE: Dynamic and static grayscale images acquired of the abdomen and recorded on PACS. Additio nal selected color Doppler and spectral images recorded. Note: Exam does not meet criteria for a complete duplex/doppler study LIMITATIONS: Study limited due to acoustical interference from fat or from air in the bowel. FINDINGS: PANCREAS: Poorly seen secondary to acoustical interference from fat or from air in the bow el. No visualized masses. Duct normal caliber as seen. LIVER: Echotexture is coarse with increased echogenicity consistent with fatty infiltration. LIVER VASCULATURE: Normal directional flow of the main portal vein and hepatic veins. GALLBLADDER: Gallstones. No gallbladder wall thickening. Trace pericholecystic fluid. ULTRASOUND-DETECTED SORENSON'S SIGN: Negative. INTRAHEPATIC DUCTS AND COMMON DUCT: CBD and intrahepatic ducts normal caliber. No filling defects. INFERIOR VENA CAVA: Normal flow. AORTA: No aneurysm. RIGHT KIDNEY: Normal size. Normal echogenicity. No solid or suspicious masses. No hydronephros is. No calcifications. LEFT KIDNEY: Normal size. Normal echogenicity. No solid or suspicious masses. No hydronephrosi s. No calcifications. SPLEEN:Normal size. No solid masses. PERITONEAL AND PLEURAL SPACES: No ascites or effusions. OTHER: Small right pleural effusion. IMPRESSION: Cholelithiasis. Trace amount of pericholecystic fluid otherwise no evidence of acute ch olecystitis. TECHNICAL DOCUMENTATION: JOB ID: [id number] 2010 [employer]- All Rights Reserved Reading location - IP/workstation name: [email or web address]
[2020-01-06 11:15] VITALS: BP 131/96
--- NOTE | 2020-01-06 11:17 | EKG REPORT ---
SEVERITY:- ABNORMAL ECG - SINUS RHYTHM LEFT BUNDLE BRANCH BLOCK : Confirmed by: Leroy Pope 06-Jan-2020 11:16:40
--- NOTE | 2020-01-06 11:49 | ER Document Report ---
Entered by JOE ROMERO SCRIBE 01/06/20 0635 Acting as scribe for:TODD FONTAINE MD ED General - General Chief Complaint: Shortness Of Breath Stated Complaint: SHORTNESS OF BREATH Time Seen by Provider: 01/06/20 06:09 Primary Care Provider: KELVIN ART MD [Primary Care Provider] - Follow up as needed Information source: Patient Notes: This 79-year-old female presents to the emergency department complaining of shortness of breath that began a week ago. Patient explains that she has associated anxiety that has increased. Patient states that she went to [facility] earlier this week and feels that all her symptoms started after this visit. Patient said that she was placed on medication for anxiety and a UTI by two separate physicians. Patient states that she "is not afraid to ". Patient states that she has been at home during this pandemic and was tested earlier this week with a negative result for COVID-19 reports yesterday to her. Patient reports nasal congestion, sinus congestion and cough. Patient denies nausea, fever, chest pain, fever, chills and sputum. TRAVEL OUTSIDE OF THE [place] IN LAST 30 DAYS: No - Related Data Allergies/Adverse Reactions: No Known Allergies Allergy (Verified 03/20/13 14:28) Past Medical History - General Information source: Patient - Social History Smoking Status: Current Every Day Smoker Cigarette use (# per day): Yes - 1 pack per day Chew tobacco use (# tins/day): No Frequency of alcohol use: None Drug Abuse: None Lives with: Alone Family History: Reviewed & Not Pertinent Patient has homicidal ideation: No - Past Medical History Cardiac Medical History: Reports: Hx Congestive Heart Failure, Hx Coronary Artery Disease, Hx Heart Attack, Hx Hypertension GI Medical History: Reports: Hx Gastroesophageal Reflux Disease Psychiatric Medical History: Reports: Hx Depression - mild and anxiety Past Surgical History: Reports: Hx Cardiac Surgery - CABG, Hx Pacemaker - Defibrillator - Immunizations Hx Diphtheria, Pertussis, Tetanus Vaccination: - unknown Hx Pneumococcal Vaccination: 06/01/18 Review of Systems - Review of Systems Constitutional: See HPI. denies: Chills, Fever EENT: See HPI, Nose congestion Cardiovascular: See HPI. denies: Chest pain Respiratory: See HPI, Cough, Short of breath. denies: Sputum Gastrointestinal: denies: Nausea, Vomiting Genitourinary: No symptoms reported Female Genitourinary: No symptoms reported Musculoskeletal: No symptoms reported Skin: No symptoms reported Hematologic/Lymphatic: No symptoms reported Neurological/Psychological: See HPI, Anxiety -: Yes All other systems reviewed and negative Physical Exam - Vital signs Vitals: Temp Pulse Resp BP Pulse Ox 97.8 F 50 L 20 127/85 H 100 01/06/20 04:41 01/06/20 04:41 01/06/20 04:41 01/06/20 04:41 01/06/20 04:41 - Notes Notes: Physical Exam: General: Alert, appears well. HEENT: Normocephalic. Atraumatic. PERRL. Extraocular movements intact. Cobblestone appearance of tongue and pharynx. No exudate. Neck: Supple. Non-tender. Respiratory: No respiratory distress. Clear and equal breath sounds bilaterally. Cardiovascular: Regular rate and rhythm. 3/6 systolic heart murmur. Abdominal: Normal Inspection. Non-tender. No distension. Normal Bowel Sounds. Back: No gross abnormalities. Extremities: Moves all four extremities. Upper extremities: Normal inspection. Normal ROM. Lower extremities: Normal inspection. No edema. Normal ROM. Neurological: Normal cognition. AAOx4. Normal speech. Psychological: Normal affect. Normal Mood. Skin: Warm. Dry. Normal color. Course - Re-evaluation Re-evalutation: 01/06/20 11:42 Patient is feeling better at this time has diuresed and is fully clothed ready to go. Discussed with patient my plan was to admitted to the hospital with her conditions of congestive heart failure and elevated troponin consistent with a mild non-STEMI. Patient also has cholelithiasis with a trace amount of cholecystic fluid patient states that she is signing out AGAINST MEDICAL ADVICE because she needs to go home and will not stay in the hospital. Patient appears oriented and competent to make this decision at this time. Risk of her leaving AGAINST MEDICAL ADVICE was discussed including she could become infected have worsening cardiovascular problems with congestive heart failure and cardiac arrest with an SD. Patient is already reported to us that she is a DNR and she is ever ready for her passing in is not concerned that she is going to necessarily today. I advised patient that she should follow-up with her Dr. Whittington as soon as possible. 01/06/20 11:49 Reexamination of patient's abdomen she discloses she does have palpable tenderness on deep palpation in the right upper quadrant consistent with a Pepe sign which indicates gallbladder disease. - Vital Signs Vital signs: Temp Pulse Resp BP Pulse Ox 97.8 F 50 L 24 H 131/96 H 94 01/06/20 05:13 01/06/20 04:41 01/06/20 08:57 01/06/20 09:01 01/06/20 07:01 - Laboratory Result Diagrams: 01/06/20 05:52 01/06/20 06:09 Laboratory results interpreted by me: 01/06/20 01/06/20 01/06/20 05:52 05:52 06:09 RDW 17.5 H Plt Count 145 L Lymph % (Auto) 12.6 L Seg Neutrophils % 79.5 H BUN 23 H Glucose 180 H Total Bilirubin 3.6 H Direct Bilirubin 1.7 H AST 144 H ALT 185 H Alkaline Phosphatase 184 H NT-Pro-B Natriuret Pep 25290 H Urine Protein Urine Urobilinogen Ur Leukocyte Esterase Acetaminophen 01/06/20 01/06/20 06:09 06:09 RDW Plt Count Lymph % (Auto) Seg Neutrophils % BUN Glucose Total Bilirubin Direct Bilirubin AST ALT Alkaline Phosphatase NT-Pro-B Natriuret Pep Urine Protein 100 H Urine Urobilinogen 4.0 H Ur Leukocyte Esterase SMALL H Acetaminophen < 10 L - Diagnostic Test Radiology reviewed: Image reviewed, Reports reviewed Radiology results interpreted by me: 01/06/20 11:44 Chest x-ray shows cardiomegaly and some vascular congestive markings noted. Pacemaker noted in the left upper chest area. No definite infiltrate. 01/06/20 11:45 Ultrasound abdomen disclose cholelithiasis no gallbladder wall thickening but a trace amount of arnold-cholecystic fluid. No obstruction was noted. 01/06/20 11:46 - EKG Interpretation by Me Additional EKG results interpreted by me: 01/06/20 11:45 Twelve-lead EKG shows normal sinus rhythm with a left bundle branch block. Discharge - Discharge Clinical Impression: Congestive heart failure, Cholelithiasis and acute cholecystitis without obstruction Disposition: AGAINST MEDICAL ADVICE Referrals: KELVIN ART MD [Primary Care Provider] - Follow up as needed I personally performed the services described in the documentation, reviewed and edited the documentation which was dictated to the scribe in my presence, and it accurately records my words and actions.
== END 2020-01-06 11:50 | disposition left against medical advice (07) ==
LOC: ER 04:34
DX: I11.0 Hypertensive heart disease with heart failure (principal); I50.9 Heart failure, unspecified; K80.10 Calculus of gallbladder with chronic cholecystitis without obstruction; I44.7 Left bundle-branch block, unspecified; I25.10 Atherosclerotic heart disease of native coronary artery without angina pectoris; R01.1 Cardiac murmur, unspecified; F41.9 Anxiety disorder, unspecified; R06.02 Shortness of breath; R09.81 Nasal congestion; R05 Cough; F17.210 Nicotine dependence, cigarettes, uncomplicated; Z66 Do not resuscitate; Z95.0 Presence of cardiac pacemaker
CPT/HCPCS: 93005; 99285; 96374; 36415; 83690; 80307; 85025; 80053; 81001; 84484; 83880; 71045; 76700; 93976; 93010; A9270 ×2; J1940

== ENCOUNTER 2020-02-09 22:25 | Emergency (ER) | payer MEDICARE ==
--- NOTE | 2020-02-09 22:48 | ER Document Report ---
Entered by HEBER OROZCO SCRIBE 02/09/20 4554 Acting as scribe for:EMILY GARCIA, ED Dizziness/Weakness - General Stated Complaint: DIZZINESS Time Seen by Provider: 02/09/20 22:34 Primary Care Provider: KELVIN ART MD [COMMUNITY BASED STAFF] - Follow up as needed Mode of Arrival: Ambulatory Information source: Patient Notes: This 79 year old female patient presents to the emergency department today with complaints of dizziness for the last month. Patient reports that she was seen here and admitted on 01/05 for a similar complaint. Patient stats that she has been "goofy" as well but is unable to elaborate. Patient appears generally weak without focal neurological deficits. Patient is a poor historian so history is limited. TRAVEL OUTSIDE OF THE [place] IN LAST 30 DAYS: No - Related Data Allergies/Adverse Reactions: No Known Allergies Allergy (Verified 03/20/13 14:28) Past Medical History - General Information source: Patient, [facility] - Social History Smoking Status: Unknown if Ever Smoked Cigarette use (# per day): No Frequency of alcohol use: None Drug Abuse: None Lives with: Family Family History: Reviewed & Not Pertinent - Past Medical History Cardiac Medical History: Reports: Hx Congestive Heart Failure, Hx Coronary Artery Disease, Hx Heart Attack, Hx Hypertension GI Medical History: Reports: Hx Gastroesophageal Reflux Disease Psychiatric Medical History: Reports: Hx Depression - mild and anxiety Past Surgical History: Reports: Hx Cardiac Surgery - CABG, Hx Pacemaker - Defibrillator - Immunizations Hx Diphtheria, Pertussis, Tetanus Vaccination: - unknown Hx Pneumococcal Vaccination: 06/01/18 Review of Systems - Review of Systems Constitutional: No symptoms reported EENT: No symptoms reported Cardiovascular: See HPI, Dizziness Respiratory: No symptoms reported Gastrointestinal: No symptoms reported Genitourinary: No symptoms reported Female Genitourinary: No symptoms reported Musculoskeletal: No symptoms reported Skin: No symptoms reported Hematologic/Lymphatic: No symptoms reported Neurological/Psychological: No symptoms reported -: Yes All other systems reviewed and negative Physical Exam - Vital signs Vitals: Temp 97.4 F 02/09/20 22:26 - Notes Notes: Physical Exam: General: Alert, appears well. HEENT: Normocephalic. Atraumatic. PERRL. Extraocular movements intact. Oropharynx clear. Neck: Supple. Non-tender. Respiratory: No respiratory distress. Clear and equal breath sounds bilaterally. Cardiovascular: Regular rate and rhythm. Abdominal: Normal Inspection. Non-tender. No distension. Normal Bowel Sounds. Back: No gross abnormalities. Extremities: Moves all four extremities. Upper extremities: generalized weakness. Lower extremities: generalized weakness. Neurological: Normal cognition. AAOx4. Normal speech. Psychological: Normal affect. Normal Mood. Skin: Warm. Dry. Normal color. Course - Re-evaluation Re-evalutation: 02/10/20 00:41 MDM Delightful 79 year old female is here wiht dizziness - vertigo it seems - she has been taking a medrol dose pack for a ? reaction to metphormin. She has no chest pain or sob or pain anywhere. Her heart rate is elevated a bit -about 110 - perhaps due to the medrol but her thyroid is normal and her xray and cardiac markers are reassuring. Additionally no evidence noted of uti. 02/10/20 01:21 I have discussed with Dr. Domingo and he feels that as long as the CTA shows no concerning diagnosis we are safe to discharge. 02/10/20 01:27 Etiologies that were considered were ACS, cap, pumonary embolus. She has some hallucinations but does realize she is having them. This may be related to the medrol she has been taking. We are having her stop this. Discussed return precautions. - Vital Signs Vital signs: Temp Pulse Resp BP Pulse Ox 98.7 F 28 H 111/99 H 99 02/10/20 03:20 02/10/20 02:56 02/10/20 02:56 02/10/20 02:56 - Laboratory Result Diagrams: 02/09/20 22:55 02/09/20 22:55 Laboratory results interpreted by me: 02/09/20 02/09/20 02/10/20 22:55 22:55 00:15 WBC 15.0 H RBC 3.59 L Hgb 11.7 L Hct 33.0 L Absolute Neuts (auto) 11.6 H Sodium 134.7 L Chloride 97 L Urine Protein 30 H Urine Urobilinogen 4.0 H - Diagnostic Test Radiology reviewed: Reports reviewed - EKG Interpretation by Mo EKG shows normal: Sinus rhythm Rate: Normal Rhythm: NSR [place]/QRS: LBBB - Sinus Tachy nl axis 112 BPM repolarization abnormality wihtout st elevation or depression. Discharge - Discharge Clinical Impression: Dizziness Dyspnea Qualifiers: Dyspnea type: unspecified Qualified Code(s): R06.00 - Dyspnea, unspecified Condition: Stable Disposition: HOME, SELF-CARE Instructions: Chronic Obstructive Lung Disease ([facility]), Dizziness ([facility]) Additional Instructions: See your doctor in follow up. Call them Tuesday morning. Take your medicine as directed. Return here for any chest pain or shortness of breath or other problems or concerns. Referrals: KELVIN ART MD [COMMUNITY BASED STAFF] - Follow up as needed I personally performed the services described in the documentation, reviewed and edited the documentation which was dictated to the scribe in my presence, and it accurately records my words and actions.
[2020-02-09 23:12] LABS: ABSOLUTE EOSINOPHILS # (AUTO) 0.3 10^3/uL (0.0-0.6); ABSOLUTE MONOCYTES (AUTO) 1.1 10^3/uL (0.1-1.4); ABSOLUTE NEUT (AUTO) 11.6 10^3/uL (1.7-8.2); BASOPHILS % (AUTO) 0.3 % (0-2); EOSINOPHILS % (AUTO) 1.7 % (0-6); HEMOGLOBIN 11.7 g/dL (12.0-15.5); LYMPHOCYTES % (AUTO) 13.3 % (13-45); MEAN CORPUSCULAR HEMOGLOBIN 32.7 pg (27.0-33.4); MEAN CORPUSCULAR HGB CONC 35.6 g/dL (32.0-36.0); MEAN CORPUSCULAR VOLUME 92 fl (80-97); MONOCYTES % (AUTO) 7.4 % (3-13); PLATELET COUNT 265 10^3/uL (150-450); RED BLOOD COUNT 3.59 10^6/uL (3.72-5.28); RED CELL DISTRIBUTION WIDTH 13.7 % (11.5-14.0); SEGMENTED NEUTROPHILS % (AUTO) 77.3 % (42-78); TOTAL CELLS COUNTED % (AUTO) 100 %
[2020-02-09 23:35] LABS: ALBUMIN 3.7 g/dL (3.5-5.0); ALKALINE PHOSPHATASE 85 U/L (38-126); ANION GAP 10 (5-19); ASPARTATE AMINO TRANSFERASE 24 U/L (14-36); BILIRUBIN,TOTAL 0.3 mg/dL (0.2-1.3); BLOOD UREA NITROGEN 12 mg/dL (7-20); CALCIUM 9.3 mg/dL (8.4-10.2); CARBON DIOXIDE 28 mmol/L (22-30); CHLORIDE 97 mmol/L (98-107); GLUCOSE 99 mg/dL (75-110); POTASSIUM 3.8 mmol/L (3.6-5.0); TOTAL PROTEIN 6.9 g/dL (6.3-8.2)
--- NOTE | 2020-02-09 23:40 | RADIOLOGY REPORT (SQ) ---
CLINICAL HISTORY: dizzy COMPARISON: 07/12/2018. TECHNIQUE: CT HEAD WITHOUT IV CONTRAST on 02/09/2020 10:52 PM CDT This exam was performed according to our departmental dose-optimization program, which includes automated exposure control, adjustment of the mA and/or kV according to patient size and/or use of iterative reconstruction technique. FINDINGS: There is no acute hemorrhage, mass effect or midline shift. Parry-white differentiation is preserved. There is no hydrocephalus. There is mild diffuse cerebral atrophy. The calvarium is intact. Orbits and globes are unremarkable. The paranasal sinuses are clear. Mastoid air cells are clear. IMPRESSION: No acute intracranial findings.
--- NOTE | 2020-02-09 23:46 | RADIOLOGY REPORT (SQ) ---
AP Portable chest: 02/09/2020 10:44 PM CDT History: 79-year old patient with hypertension. Comparison: Chest radiograph performed 01/06/2020. Findings: The cardiomediastinal silhouette is enlarged. No pneumothorax is seen. There is blunting of both costophrenic angles, suggestive of trace effusions. No acute airspace opacities are seen. Midline sternotomy changes are seen. A dual-lead left-sided pacemaker/AICD is seen. Impression: No acute airspace opacities are seen. The cardiomediastinal silhouette is enlarged.
[2020-02-09] MEDS ORDERED: MECLIZINE HCL 12.5 MG TABLET PO ONE (23:48)
[2020-02-10] MEDS ORDERED: MECLIZINE HCL 12.5 MG TABLET ONE (00:08)
[2020-02-10 00:34] LABS: APPEARANCE,URINE SLIGHTLY-CLOUDY; BILIRUBIN,URINE NEGATIVE (NEGATIVE); COLOR,URINE AMBER; GLUCOSE, URINE NEGATIVE (NEGATIVE); KETONES,URINE NEGATIVE (NEGATIVE); PROTEIN,URINE 30 mg/dL (NEGATIVE); URINE SPECIFIC GRAVITY 1.023
--- NOTE | 2020-02-10 02:14 | RADIOLOGY REPORT (SQ) ---
CLINICAL HISTORY: tachy/ tachypnea COMPARISON: None. TECHNIQUE: CT CHEST ANGIOGRAPHY WITHOUT THEN WITH IV CONTRAST on 02/10/2020 12:44 AM CDT. MIPS reconstructions were generated. This exam was performed according to our departmental dose-optimization program, which includes automated exposure control, adjustment of the mA and/or kV according to patient size and/or use of iterative reconstruction technique. MIP images were generated. FINDINGS: Thoracic aorta is normal in course and caliber without aneurysm or dissection. Pulmonary arteries are adequately opacified without acute or chronic filling defects. The heart is grossly enlarged following sternotomy. Left dual-chamber AICD is present. There is no pericardial effusion. Intrathoracic lymph nodes are not enlarged. There is a small right pleural effusion. Central airways are patent. Lungs are clear with no consolidation, mass or interstitial lung disease. There are no acute abnormalities within the limited images of the upper abdomen. There are no acute osseous findings. No suspicious bony lesions. IMPRESSION: Cardiomegaly with no aortic dissection or aneurysm. No pulmonary embolus. Right pleural effusion.
[2020-02-10 03:06] VITALS: BP 111/99
--- NOTE | 2020-02-10 08:17 | EKG REPORT ---
SEVERITY:- ABNORMAL ECG - SINUS TACHYCARDIA PAIRED VENTRICULAR PREMATURE COMPLEXES INCOMPLETE LEFT BUNDLE BRANCH BLOCK LOW VOLTAGE IN FRONTAL LEADS : Confirmed by: Rene Rodriguez MD 10-Feb-2020 08:17:03
== END 2020-02-10 03:21 | disposition home or self-care (01) ==
LOC: ER 22:25
DX: R42 Dizziness and giddiness (principal); J90 Pleural effusion, not elsewhere classified; R44.3 Hallucinations, unspecified; I44.7 Left bundle-branch block, unspecified; R00.0 Tachycardia, unspecified; R06.00 Dyspnea, unspecified; I25.10 Atherosclerotic heart disease of native coronary artery without angina pectoris; I11.9 Hypertensive heart disease without heart failure; R53.1 Weakness; Z95.1 Presence of aortocoronary bypass graft; Z95.810 Presence of automatic (implantable) cardiac defibrillator
CPT/HCPCS: 93005; 99285; 36415; 83735; 84443; 85025; 80053; 81001; 84484; 71045; 70450; 71275; 93010; A9270; J3490

== ENCOUNTER 2020-02-12 07:39 | Emergency (ER) | payer MEDICARE ==
[2020-02-12] MEDS ORDERED: NORMAL SALINE 250 ML IV ONE (09:17)
--- NOTE | 2020-02-12 10:07 | RADIOLOGY REPORT (SQ) ---
EXAM DESCRIPTION: CHEST SINGLE VIEW IMAGES COMPLETED DATE/TIME: 02/12/2020 9:57 am REASON FOR STUDY: fall COMPARISON: 02/09/2020 EXAM PARAMETERS: NUMBER OF VIEWS: One view. TECHNIQUE: Single frontal radiographic view of the chest acquired. RADIATION DOSE: NA LIMITATIONS: None. FINDINGS: LUNGS AND PLEURA: No evidence of pulmonary contusion or pneumothorax. MEDIASTINUM AND HILAR STRUCTURES: Stable. HEART AND VASCULAR STRUCTURES: Cardiomegaly. BONES: No acute findings. HARDWARE: CABG. Defibrillator. OTHER: No other significant finding. IMPRESSION: NO ACUTE RADIOGRAPHIC FINDING IN THE CHEST. TECHNICAL DOCUMENTATION: JOB ID: [id number] 2010 [employer]- All Rights Reserved Reading location - IP/workstation name: [email or web address]
[2020-02-12 10:27] LABS: ABSOLUTE LYMPHOCYTES (AUTO) 1.4 10^3/uL (0.5-4.7); ABSOLUTE MONOCYTES (AUTO) 0.5 10^3/uL (0.1-1.4); ABSOLUTE NEUT (AUTO) 6.4 10^3/uL (1.7-8.2); BASOPHILS % (AUTO) 0.2 % (0-2); EOSINOPHILS % (AUTO) 0.1 % (0-6); HEMATOCRIT 38.4 % (36.0-47.0); HEMOGLOBIN 12.4 g/dL (12.0-15.5); LYMPHOCYTES % (AUTO) 17.1 % (13-45); MEAN CORPUSCULAR HEMOGLOBIN 26.3 pg (27.0-33.4); MEAN CORPUSCULAR HGB CONC 32.2 g/dL (32.0-36.0); MONOCYTES % (AUTO) 6.3 % (3-13); PLATELET COUNT 125 10^3/uL (150-450); RED CELL DISTRIBUTION WIDTH 19.9 % (11.5-14.0); SEGMENTED NEUTROPHILS % (AUTO) 76.3 % (42-78); TOTAL CELLS COUNTED % (AUTO) 100 %; WHITE BLOOD COUNT 8.3 10^3/uL (4.0-10.5)
[2020-02-12 10:33] LABS: MEAN CORPUSCULAR VOLUME 82 fl (80-97)
[2020-02-12 10:44] LABS: ALBUMIN 3.9 g/dL (3.5-5.0); ALKALINE PHOSPHATASE 128 U/L (38-126); ANION GAP 11 (5-19); ASPARTATE AMINO TRANSFERASE 67 U/L (14-36); BILIRUBIN,DIRECT 2.9 mg/dL (0.0-0.4); BILIRUBIN,TOTAL 5.7 mg/dL (0.2-1.3); BLOOD UREA NITROGEN 49 mg/dL (7-20); CALCIUM 9.2 mg/dL (8.4-10.2); CARBON DIOXIDE 23 mmol/L (22-30); CHLORIDE 100 mmol/L (98-107); CREATINE KINASE 83 U/L (30-135); GLUCOSE 160 mg/dL (75-110); POTASSIUM 4.4 mmol/L (3.6-5.0); TOTAL PROTEIN 6.9 g/dL (6.3-8.2)
[2020-02-12 10:56] LABS: CREATINE KINASE MB 2.16 ng/mL (<4.55)
[2020-02-12 11:00] LABS: TROPONIN I 0.037 ng/mL
--- NOTE | 2020-02-12 11:17 | RADIOLOGY REPORT (SQ) ---
EXAM DESCRIPTION: CT HEAD WITHOUT IMAGES COMPLETED DATE/TIME: 02/12/2020 10:51 am REASON FOR STUDY: head injury/fall COMPARISON: None. TECHNIQUE: Axial images acquired through the brain without intravenous contrast. Images reviewed wi th bone, brain and subdural windows. Additional sagittal and coronal reconstructions were generated. Images stored on PACS. All CT scanners at this facility use dose modulation, iterative reconstruction, and/or weight based d osing when appropriate to reduce radiation dose to as low as reasonably achievable (ALARA). [facility]: Dose Right [facility]: CareDose [facility]: Dose Right [facility]: Teradose 4D [facility]: [employer] RADIATION DOSE: CT Rad equipment meets quality standard of care and radiation dose reduction techniq ues were employed. CTDIvol: 53.2 mGy. DLP: 991 mGy-cm.mGy. LIMITATIONS: None. FINDINGS: VENTRICLES: Prominent. CEREBRUM: No masses. No hemorrhage. No midline shift. Areas of low density in the white matter mos t likely due to chronic micro-vascular ischemic change. No evidence for acute infarction. CEREBELLUM: No masses. No hemorrhage. No alteration of density. No evidence for acute infarction. EXTRAAXIAL SPACES: Age-related involutional change. No fluid collections. No masses. ORBITS AND GLOBE: No intra- or extraconal masses. Normal contour of globe without masses. CALVARIUM: No fracture. PARANASAL SINUSES: No fluid or mucosal thickening. SOFT TISSUES: No mass or hematoma. OTHER: No other significant finding. IMPRESSION: CHRONIC CHANGES OF ATROPHY AND MICROVASCULAR ISCHEMIA. NO ACUTE PROCESS. EVIDENCE OF ACUTE STROKE: NO. TECHNICAL DOCUMENTATION: JOB ID: [id number] Quality ID # 436: Final reports with documentation of one or more dose reduction techniques (e.g., Au tomated exposure control, adjustment of the mA and/or kV according to patient size, use of iterative reconstruction technique) 2010 [employer]- All Rights Reserved Reading location - IP/workstation name: [email or web address]
--- NOTE | 2020-02-12 11:21 | RADIOLOGY REPORT (SQ) ---
EXAM DESCRIPTION: CT CERVICAL SPINE WITHOUT IMAGES COMPLETED DATE/TIME: 02/12/2020 10:51 am REASON FOR STUDY: fall/neck pain COMPARISON: None. TECHNIQUE: Axial images acquired through the cervical spine without intravenous contrast. Images re viewed with lung, soft tissue and bone windows. Reconstructed coronal and sagittal MPR images review ed. Images stored on PACS. All CT scanners at this facility use dose modulation, iterative reconstruction, and/or weight based d osing when appropriate to reduce radiation dose to as low as reasonably achievable (ALARA). [facility]: Dose Right [facility]: CareDose [facility]: Dose Right [facility]: Teradose 4D [facility]: [employer] RADIATION DOSE: CT Rad equipment meets quality standard of care and radiation dose reduction techniq ues were employed. CTDIvol: 16.1 mGy. DLP: 283 mGy-cm. mGy. LIMITATIONS: None. FINDINGS: ALIGNMENT: Anatomic. MINERALIZATION: Normal. VERTEBRAL BODIES: No fractures or dislocation. DISCS: Multilevel disc space narrowing with osteophytes. FACETS, LATERAL MASSES, POSTERIOR ELEMENTS: Facet arthropathy. No fractures. No dislocation. No ac teresa findings. HARDWARE: None in the spine. VISUALIZED RIBS: No fractures. LUNG APICES AND SOFT TISSUES: Small amount of nondependent gas in the right supraclavicular soft tiss ues. OTHER: No other significant finding. IMPRESSION: No evidence of fracture or dislocation. Small amount of gas in the right supraclavicula r soft tissues of uncertain significance. No foreign body identified. TECHNICAL DOCUMENTATION: JOB ID: [id number] Quality ID # [id number]: Final reports with documentation of one or more dose reduction techniques (e.g., Au tomated exposure control, adjustment of the mA and/or kV according to patient size, use of iterative reconstruction technique) 2010 [employer]- All Rights Reserved Reading location - IP/workstation name: [email or web address]
--- NOTE | 2020-02-12 11:27 | RADIOLOGY REPORT (SQ) ---
EXAM DESCRIPTION: CT LUMBAR SPINE WITHOUT IMAGES COMPLETED DATE/TIME: 02/12/2020 10:51 am REASON FOR STUDY: pain/fall COMPARISON: None. TECHNIQUE: Axial images acquired through the lumbar spine without intravenous contrast. Images revi ewed with lung, soft tissue and bone windows. Reconstructed coronal and sagittal MPR images reviewed . All images stored on PACS. All CT scanners at this facility use dose modulation, iterative reconstruction, and/or weight based d osing when appropriate to reduce radiation dose to as low as reasonably achievable (ALARA). [facility]: Dose Right [facility]: CareDose [facility]: Dose Right [facility]: Teradose 4D [facility]: [employer] RADIATION DOSE: mGy. LIMITATIONS: Motion artifact. FINDINGS: Alignment is anatomic. No fracture. No obvious acute disc herniation. Facet arthropathy L3- 4 through L5-S 1. No paraspinal hematoma. IMPRESSION: No fracture. TECHNICAL DOCUMENTATION: JOB ID: [id number] Quality ID # [id number]: Final reports with documentation of one or more dose reduction techniques (e.g., Au tomated exposure control, adjustment of the mA and/or kV according to patient size, use of iterative reconstruction technique) 2010 [employer]- All Rights Reserved Reading location - IP/workstation name: [email or web address]
--- NOTE | 2020-02-12 11:31 | RADIOLOGY REPORT (SQ) ---
EXAM DESCRIPTION: CT PELVIS WITHOUT IMAGES COMPLETED DATE/TIME: 02/12/2020 10:51 am REASON FOR STUDY: pain/fall COMPARISON: None. TECHNIQUE: CT scan of the pelvis performed without intravenous or oral contrast. Images reviewed wi th soft tissue and bone windows. Reconstructed coronal and sagittal MPR images reviewed. All images stored on PACS. All CT scanners at this facility use dose modulation, iterative reconstruction, and/or weight based d osing when appropriate to reduce radiation dose to as low as reasonably achievable (ALARA). [facility]: Dose Right [facility]: CareDose [facility]: Dose Right [facility]: Teradose 4D [facility]: [employer] RADIATION DOSE: CT Rad equipment meets quality standard of care and radiation dose reduction techniq ues were employed. CTDIvol: 24.7 mGy. DLP: 689 mGy-cm. mGy. LIMITATIONS: None. FINDINGS: PELVIC BONES: No acute fracture. No worrisome bone lesions. VISUALIZED SPINE: See separate report. HIP(S): No acute fracture or dislocation. No worrisome bone lesions. PELVIC SOFT TISSUES: Contrast in the urinary bladder. Small amount of free fluid. EXTRAPELVIC SOFT TISSUES: No significant findings. OTHER: No other significant finding. IMPRESSION: No fracture. TECHNICAL DOCUMENTATION: JOB ID: [id number] Quality ID # 436: Final reports with documentation of one or more dose reduction techniques (e.g., Au tomated exposure control, adjustment of the mA and/or kV according to patient size, use of iterative reconstruction technique) 2010 [employer]- All Rights Reserved Reading location - IP/workstation name: [email or web address]
[2020-02-12 11:59] LABS: APPEARANCE,URINE CLOUDY; BILIRUBIN,URINE NEGATIVE (NEGATIVE); GLUCOSE, URINE NEGATIVE (NEGATIVE); KETONES,URINE NEGATIVE (NEGATIVE); LEUKOCYTE ESTERASE,URINE NEGATIVE (NEGATIVE); NITRITE,URINE NEGATIVE (NEGATIVE); PROTEIN,URINE 30 mg/dL (NEGATIVE); URINE SPECIFIC GRAVITY 1.029
[2020-02-12 12:00] LABS: COLOR,URINE DARK YELLOW
--- NOTE | 2020-02-12 13:07 | RADIOLOGY REPORT (SQ) ---
EXAM DESCRIPTION: U/S ABDOMEN LIMITED W/O DOP IMAGES COMPLETED DATE/TIME: 02/12/2020 12:46 pm REASON FOR STUDY: elevated lfts/known gallbladder disease COMPARISON: 01/06/2020 TECHNIQUE: Dynamic and static grayscale images acquired of the abdomen and recorded on PACS. [place] daily selected color Doppler and spectral images recorded. LIMITATIONS: Limited visualization. Poor acoustical window FINDINGS: PANCREAS: Not visualized. LIVER: Normal size Echo texture normal. No focal masses. LIVER VASCULATURE: Normal directional flow of the main portal vein and hepatic veins. GALLBLADDER: Gallstone(s). No pericholecystic fluid. No wall thickening. ULTRASOUND-DETECTED SORENSON'S SIGN: Negative. INTRAHEPATIC DUCTS AND COMMON DUCT: CBD and intrahepatic ducts normal caliber. No filling defects. INFERIOR VENA CAVA: Normal flow. AORTA: No aneurysm. RIGHT KIDNEY: Normal size. Normal echogenicity. No solid or suspicious masses. No hydronephros is. No calcifications. PERITONEAL AND RIGHT PLEURAL SPACE: No ascites or effusions. OTHER: No other significant findings. IMPRESSION: Cholelithiasis. No significant change. TECHNICAL DOCUMENTATION: JOB ID: [id number] 2010 [employer]- All Rights Reserved Reading location - IP/workstation name: [email or web address]
--- NOTE | 2020-02-12 13:19 | RADIOLOGY REPORT (SQ) ---
EXAM DESCRIPTION: KUB/ABDOMEN (SINGLE VIEW) IMAGES COMPLETED DATE/TIME: 02/12/2020 1:00 pm REASON FOR STUDY: elevatd lfts COMPARISON: None. NUMBER OF VIEWS: One view. TECHNIQUE: Supine radiographic image of the abdomen acquired. LIMITATIONS: None. FINDINGS: BOWEL GAS PATTERN: Normal bowel gas pattern. No dilated loops. CALCIFICATIONS: No suspicious calcifications. SOFT TISSUES: No gross mass or suggestion of organomegaly. HARDWARE: None in the abdomen. BONES: No acute fracture. No worrisome bone lesions. OTHER: No other significant finding. IMPRESSION: NO RADIOGRAPHIC EVIDENCE FOR ACUTE ABDOMINAL DISEASE. TECHNICAL DOCUMENTATION: JOB ID: [id number] 2010 [employer]- All Rights Reserved Reading location - IP/workstation name: [email or web address]
--- NOTE | 2020-02-12 14:28 | EKG REPORT ---
SEVERITY:- ABNORMAL ECG - PACEMAKER SPIKES OR ARTIFACTS Probable atrial fibrillation INCOMPLETE LEFT BUNDLE BRANCH BLOCK LOW VOLTAGE IN FRONTAL LEADS : Confirmed by: Ethan Jeffers MD 12-Feb-2020 14:27:31
--- NOTE | 2020-02-12 15:58 | ER Document Report ---
Entered by MARIA M BERMUDEZ SCRIBE 02/12/20 0937 Acting as scribe for:TODD FONTAINE MD ED Dizziness/Weakness - General Chief Complaint: Dizziness Stated Complaint: DIZZINESS,FALL Time Seen by Provider: 02/12/20 07:54 Mode of Arrival: Medic Information source: Patient, Emergency Med Personnel Notes: This 79 year old female patient brought in by EMS from home presents to the ED today with complaints of dizziness and fall that occurred just prior to arrival. Patient states that she was standing by the bed and fell into a chest of drawers. She states that she hit the right side of her head, but denies headache, LOC, or pain anywhere else. She states "my legs don't work" as to the reason she fell in addition to the dizziness. She also notes that her medication s make her "goofy", so she stopped taking them. Patient was seen here x3 days ago with a similar complaint. According to ED nurse, patient lives alone and family is seeking placement in a halfway care facility. TRAVEL OUTSIDE OF THE [place] IN LAST 30 DAYS: No - Related Data Allergies/Adverse Reactions: No Known Allergies Allergy (Verified 03/20/13 14:28) Past Medical History - General Information source: Patient, [facility] Records - Social History Smoking Status: Former Smoker Cigarette use (# per day): No Chew tobacco use (# tins/day): No Smoking Education Provided: No Frequency of alcohol use: None Drug Abuse: None Lives with: Alone Family History: Reviewed & Not Pertinent Patient has suicidal ideation: No Patient has homicidal ideation: No - Past Medical History Cardiac Medical History: Reports: Hx Congestive Heart Failure, Hx Coronary Artery Disease, Hx Heart Attack, Hx Hypertension GI Medical History: Reports: Hx Gastroesophageal Reflux Disease Psychiatric Medical History: Reports: Hx Anxiety, Hx Depression - mild Past Surgical History: Reports: Hx Coronary Artery Bypass Graft, Hx Pacemaker - Defibrillator - Immunizations Hx Diphtheria, Pertussis, Tetanus Vaccination: - unknown Hx Pneumococcal Vaccination: 06/01/18 Review of Systems - Review of Systems Constitutional: No symptoms reported EENT: No symptoms reported Cardiovascular: See HPI, Dizziness Respiratory: No symptoms reported Gastrointestinal: No symptoms reported Genitourinary: No symptoms reported Female Genitourinary: No symptoms reported Musculoskeletal: See HPI. denies: Joint pain - Hip, knee, Muscle pain Skin: No symptoms reported Hematologic/Lymphatic: No symptoms reported Neurological/Psychological: See HPI. denies: Lost consciousness, Headaches Physical Exam - Vital signs Vitals: Temp Pulse Resp BP Pulse Ox 97.3 F 105 H 18 110/85 100 02/12/20 07:50 02/12/20 07:50 02/12/20 07:50 02/12/20 07:50 02/12/20 07:50 - General General appearance: Alert In distress: None - HEENT Head: Normocephalic, Atraumatic Eyes: Normal Pupils: PERRL - Respiratory Respiratory status: No respiratory distress Chest status: Nontender Breath sounds: Normal Chest palpation: Normal - Cardiovascular Rhythm: Regular Heart sounds: Normal auscultation Murmur: No Friction rub: No Gallop: None auscultated - Abdominal Inspection: Normal Distension: No distension Bowel sounds: Normal Tenderness: Nontender - Abdomen soft Organomegaly: No organomegaly - Back Back: Normal, Nontender - Extremities General upper extremity: Normal inspection General lower extremity: Normal inspection - Neurological Neuro grossly intact: Yes [place] Coma Scale Eye Opening: Spontaneous [place] Coma Scale Verbal: Oriented [place] Coma Scale Motor: Obeys Commands [place]ai Coma Scale Total: 15 - Psychological Associated symptoms: Normal affect, Normal mood - Skin Skin Temperature: Warm Skin Moisture: Dry Skin Color: Normal Course - Re-evaluation Re-evalutation: 02/12/20 16:50 Patient resting comfortably started uncomfortable in bed due to lack of a pillow which is her only complaint at this time. Denies any chest pain or abdominal pain currently. 02/12/20 18:12 Case discussed with the hospitalist service Dr. Hernandez consulted with patient in the emergency department. Based on his opinion and consultation he recommended the patient be discharged home. His greatest concern was not over the small troponin leak is flat at 0.037 is the fact the patient has LFT elevations. Patient has had transient elevations in her liver function tests on other occasions are normal. Patient has known cholelithiasis without any other known problem of obstruction. Patient has no complaints of her right upper quadrant tenderness and no nausea vomiting as her presentation. Patient presented because she had fallen due to weakness in both lower legs and was brought to the emergency room after lying on the floor for [address] Hernandez discussed patient's liver function test abnormality and cholelithiasis with the on-call surgeon today Dr. Tomas. 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 Plan is for patient to be discharged home and picked up by her son today and they will be working further on following up with the referral recommendation that we make in for follow-up on the liver function tests. - Vital Signs Vital signs: Temp Pulse Resp BP Pulse Ox 97.3 F 105 H 26 H 120/76 88 L 02/12/20 07:50 02/12/20 07:50 02/12/20 16:01 02/12/20 16:01 02/12/20 16:01 02/12/20 16:50 Vital signs stable except for pulse of 105. - Laboratory Result Diagrams: 02/12/20 10:15 02/12/20 10:15 Laboratory results interpreted by me: 02/12/20 02/12/20 02/12/20 10:15 10:15 11:38 MCH 26.3 L RDW 19.9 H Plt Count 125 L Sodium 133.8 L BUN 49 H Est GFR (MDRD) Non-Af 57 L Glucose 160 H Total Bilirubin 5.7 H Direct Bilirubin 2.9 H AST 67 H ALT 49 H Alkaline Phosphatase 128 H Urine Protein 30 H Urine Urobilinogen 4.0 H Laboratory abnormalities show a elevated LFTs with a bilirubin of 5.7. Also elevated AST ALT AST and alkaline phosphatase. Patient's blood sugar is 116. Patient has known: Lithiasis without cholecystitis or choledocholithiasis. Ultrasound today showed normal gallbladder except for gallstones no other acute process noted. Patient appears to have transient elevations in her liver functi on tests which of on other occasions will return back to normal. Patient also has an elevated troponin of 0.037 x2. Patient has had normal troponins in the past as well as elevations of this kind before. Patient has known coronary artery disease and chronic A. fib and is on a pacemaker. - Diagnostic Test Radiology reviewed: Image reviewed, Reports reviewed Radiology results interpreted by me: 02/12/20 16:[address] chronic changes and atrophy no acute process. No evidence of stroke or trauma CT cervical spine shows no fracture no dislocation. Questionable small amount of gas in the right supraclavicular soft tissue area. Chest x-ray shows no pneumothorax no acute process. CT lumbar spine no fractures noted facet arthropathy at L3-4 through L5-S1. CT pelvis shows no fracture Abdominal ultrasound shows cholelithiasis with no acute changes KUB shows no acute process no obstruction no free air nonspecific bowel gas pattern. - EKG Interpretation by Me Additional EKG results interpreted by me: 02/12/20 16:54 Twelve-lead EKG shows pacemaker spikes with a rate of 109 wandering pacemaker. Incomplete left bundle branch block low voltage in frontal leads. Repeat twelve-lead EKG shows sinus tachycardia rate of 106 with ventricular premature complexes noted. Left bundle branch block. During the course of the day patient did have a very short beat run of V. tach not sustained for more than a few seconds. Discharge - Discharge Clinical Impression: Muscle weakness of lower extremity, Chronic a-fib, Coronary artery disease involving autologous artery coronary bypass graft, Elevated troponin, Elevated liver function tests, Do not resuscitate status Accidental fall Qualifiers: Encounter type: initial encounter Qualified Code(s): W19.XXXA - Unspecified fall, initial encounter Condition: Fair Disposition: HOME, SELF-CARE Additional Instructions: Gallbladder Disease Your evaluation shows evidence of gallbladder disease. The gallbladder is a pouch under the liver which stores bile. Stones, infection, or irritation of the gallbladder cause attacks of pain. Certain foods -- fats in particular -- may provoke attacks. The usual treatment for gallbladder disease is surgical removal of the gallbladder -- called a cholecystectomy. You will be referred to a physician qualified to advise you on the best treatment for your problem. Hospitalization is not necessary. Take clear liquids only until you are painfree. After that, you should stay on a low-fat diet, with frequent SMALL meals. Call the doctor or return at once if you develop severe pain, repeated vomiting, fever, or jaundice (a yellow color in the skin and whites of the eyes). You have elevated liver function test today. This was not a cause of your pr esentation to the emergency department today. We have noted reviewing your chart that on occasions when you present you do have elevated liver function tests and there are other times your test are completely normal. It does not appear to cause you any problems of any note that you are aware of however you do have gallstones which have been documented many times and today your test shows gallstones present as expected but no other acute process is noted ductal dilatation or any kind of evidence that you are being blocked in terms of the flow or your bile. It is recommended that you follow-up with Dr. Robert, fence making machine operator who can determine whether or not you have any blockages in your biliary tree system. Once that is completely confirmed if there is a blockage then consideration for a gallbladder removal should be considered strongly to avoid any further complications of gallbladder disease. There are no new medications provided today based on your ED visit. Continue your same medications as you are doing. Follow-up with your primary care physician as soon as possible. Consideration for physical therapy should be in order in order to strengthen your lower extremities. I personally performed the services described in the documentation, reviewed and edited the documentation which was dictated to the scribe in my presence, and it accurately records my words and actions.
--- NOTE | 2020-02-12 17:54 | PDOC CONSULTATION ---
Consultation Consult Date: 02/12/20 Attending physician:: TODD FONTAINE Provider Consulted: YUMIKO BERNARD Consult reason:: Troponin leak History of Present Illness Patient complains of: Fall History of Present Illness: JYOTSNA GANT is a 79 year old female with a history of CAD status post CABG, known left bundle branch block, s/p pacemaker, who presents to the hospital with complaint of generalized weakness. She complains that she just had 4 today when attempting to ambulate. States that her legs felt weak and have been feeling this way for about 4 to 6 weeks now. States that she has had a few falls in the past few weeks. Admits to hitting her head and her right arm. Currently denies any significant pain. She denies any chest pain shortness of breath, abdominal pain fever or chills. She also denies any focal weaknesses and any focal neurological symptoms. Denies any preceding lightheadedness prior to the fall denies any palpitations prior to the fall as well. She states that she lives alone and does have some occasional physical therapy at home. Her son lives in [facility] and she has a niece that lives out of town as well. In the ER, trauma work-up was negative but patient was noted to have acute mild troponin leak. Hospitalist service subsequently consulted for admission given this. Past Medical History Cardiac Medical History: Reports: Congestive Heart Failure, Coronary Artery Disease, Myocardial Infarction, Hypertension GI Medical History: Reports: Gastroesophageal Reflux Disease Psychiatric Medical History: Reports: Depression - mild Past Surgical History Past Surgical History: Reports: Coronary Artery Bypass Graft, Pacemaker - Defibrillator Social History Lives with: Alone Smoking Status: Former Smoker Electronic Cigarette use?: No Frequency of Alcohol Use: None Hx Recreational Drug Use: No Drugs: None Hx Prescription Drug Abuse: No - Advance Directive Resuscitation Status: Do Not Resuscitate Family History Family History: Hypertension, Other - Heart disease Parental Family History Reviewed: Yes Children Family History Reviewed: Unknown Sibling(s) Family History Reviewed.: Yes Medication/Allergy Home Medications: Atorvastatin Calcium [Lipitor 20 mg Tablet] 20 mg PO DAILY 07/12/18 Lisinopril 20 mg PO DAILY 07/12/18 Metformin HCl [Metformin HCl ER] 500 mg PO DAILY 07/12/18 Metoprolol Tartrate [Lopressor 50 mg Tablet] 50 mg PO Q12 07/12/18 Atorvastatin Calcium [Lipitor 20 mg Tablet] 20 mg PO QHS tablet 07/14/18 Allergies/Adverse Reactions: No Known Allergies Allergy (Verified 03/20/13 14:28) Review of Systems Constitutional: PRESENT: weakness - Generalized mostly legs. ABSENT: chills, fever(s) Eyes: ABSENT: visual disturbances Nose, Mouth, and Throat: ABSENT: headache(s) Cardiovascular: ABSENT: chest pain, dyspnea on exertion, edema, orthropnea Respiratory: ABSENT: dyspnea Gastrointestinal: ABSENT: abdominal pain, nausea, vomiting Genitourinary: ABSENT: difficulty urinating, dysuria Musculoskeletal: ABSENT: back pain Integumentary: ABSENT: diaphoresis Neurological: ABSENT: confusion, convulsions, dizziness, focal weakness, tremor(s), vertigo Endocrine: ABSENT: polyuria Hematologic/Lymphatic: ABSENT: easy bruising Allergic/Immunologic: PRESENT: seasonal rhinorrhea Physical Exam Vital Signs: Temp Pulse Resp BP Pulse Ox 97.3 F 105 H 26 H 120/76 88 L 02/12/20 07:50 02/12/20 07:50 02/12/20 16:01 02/12/20 16:01 02/12/20 16:01 Intake & Output 02/11/20 02/12/20 02/13/20 06:59 06:59 06:59 Intake Total 250 Balance 250 Weight 53.524 kg General appearance: PRESENT: no acute distress, cooperative Head exam: PRESENT: atraumatic Eye exam: PRESENT: EOMI. ABSENT: scleral icterus Neck exam: ABSENT: JVD Respiratory exam: PRESENT: clear to auscultation james, symmetrical, unlabored. ABSENT: tachypnea, wheezes Cardiovascular exam: PRESENT: +S1, +S2, systolic murmur - llsb, tachycardia. ABSENT: irregular rhythm GI/Abdominal exam: PRESENT: soft. ABSENT: distended, firm, guarding, Pepe's sign, organolmegaly, rebound, rigid, tenderness Extremities exam: ABSENT: calf tenderness, pedal edema Neurological exam: PRESENT: alert, awake, oriented to person, oriented to place, oriented to time, oriented to situation, CN II-XII grossly intact. ABSENT: motor sensory deficit Psychiatric exam: ABSENT: agitated, anxious Results Laboratory Results: 02/12/20 10:15 02/12/20 10:15 02/12/20 02/12/20 02/12/20 08:20 08:20 10:15 WBC Cancelled RBC Cancelled Hgb Cancelled Hct Cancelled MCV Cancelled MCH Cancelled MCHC Cancelled RDW Cancelled Plt Count Cancelled Seg Neutrophils % Cancelled Sodium Cancelled 133.8 L Potassium Cancelled 4.4 Chloride Cancelled 100 Carbon Dioxide Cancelled 23 Anion Gap Cancelled 11 BUN Cancelled 49 H Creatinine Cancelled 0.95 Est GFR ( Amer) Cancelled > 60 Est GFR (Non-Af Amer) Cancelled Glucose Cancelled 160 H Calcium Cancelled 9.2 Total Bilirubin Cancelled 5.7 H AST Cancelled 67 H Alkaline Phosphatase Cancelled 128 H Total Protein Cancelled 6.9 Albumin Cancelled 3.9 Lipase TSH Urine Color Urine Appearance Urine pH Ur Specific [place] Urine Protein Urine Glucose (UA) Urine Ketones Urine Blood Urine Nitrite Ur Leukocyte Esterase Urine WBC (Auto) Urine RBC (Auto) 02/12/20 02/12/20 02/12/20 10:15 10:15 10:15 WBC 8.3 RBC 4.70 Hgb 12.4 Hct 38.4 MCV 82 D MCH 26.3 L MCHC 32.2 RDW 19.9 H Plt Count 125 L Seg Neutrophils % 76.3 Sodium Potassium Chloride Carbon Dioxide Anion Gap BUN Creatinine Est GFR ( Amer) Est GFR (Non-Af Amer) Glucose Calcium Total Bilirubin AST Alkaline Phosphatase Total Protein Albumin Lipase 135.5 TSH 1.81 Urine Color Urine Appearance Urine pH Ur Specific [place] Urine Protein Urine Glucose (UA) Urine Ketones Urine Blood Urine Nitrite Ur Leukocyte Esterase Urine WBC (Auto) Urine RBC (Auto) 02/12/20 11:38 WBC RBC Hgb Hct MCV MCH MCHC RDW Plt Count Seg Neutrophils % Sodium Potassium Chloride Carbon Dioxide Anion Gap BUN Creatinine Est GFR ( Amer) Est GFR (Non-Af Amer) Glucose Calcium Total Bilirubin AST Alkaline Phosphatase Total Protein Albumin Lipase TSH Urine Color DARK YELLOW Urine Appearance CLOUDY Urine pH 5.0 Ur Specific [place] 1.029 Urine Protein 30 H Urine Glucose (UA) NEGATIVE Urine Ketones NEGATIVE Urine Blood NEGATIVE Urine Nitrite NEGATIVE Ur Leukocyte Esterase NEGATIVE Urine WBC (Auto) 2 Urine RBC (Auto) 1 02/12/20 02/12/20 02/12/20 08:20 08:20 10:15 Creatine Kinase Cancelled 83 CK-MB (CK-2) Cancelled Troponin I Cancelled 02/12/20 02/12/20 02/12/20 10:15 13:22 14:44 Creatine Kinase CK-MB (CK-2) 2.16 Troponin I 0.037 Cancelled 0.037 Impressions: Head CT 02/12/20 09:19 IMPRESSION: CHRONIC CHANGES OF ATROPHY AND MICROVASCULAR ISCHEMIA. NO ACUTE PROCESS. EVIDENCE OF ACUTE STROKE: NO. Cervical Spine CT 02/12/20 09:20 IMPRESSION: No evidence of fracture or dislocation. Small amount of gas in the right supraclavicular soft tissues of uncertain significance. No foreign body identified. Lumbar Spine CT 02/12/20 09:22 IMPRESSION: No fracture. Pelvis CT 02/12/20 09:22 IMPRESSION: No fracture. Chest X-Ray 02/12/20 09:24 IMPRESSION: NO ACUTE RADIOGRAPHIC FINDING IN THE CHEST. Abdomen Ultrasound 02/12/20 11:52 IMPRESSION: Cholelithiasis. No significant change. KUB X-Ray 02/12/20 11:57 IMPRESSION: NO RADIOGRAPHIC EVIDENCE FOR ACUTE ABDOMINAL DISEASE. Assessment and Plan - Diagnosis (1) Elevated troponin Is this a current diagnosis for this admission?: Yes Plan: I have reviewed EKG which shows sinus tachycardia with left bundle branch block which is known and paced rhythm. I have reviewed her prior EKGs and I do not see any significant change from prior EKGs on prior visits. Troponin showed only minimal elevation 0.037 --->0.037 drawn 4 hours apart. Patient is completely asymptomatic and denies any chest pain, dyspnea, nausea or vomiting or shoulder pain. ACS at this point is highly unlikely and I think there is no point trending cardiac enzymes any further. Resume her regular cardiac medications as she has history of coronary artery disease and she can follow-up outpatient with her doctor. (2) Accidental fall Qualifiers: Encounter type: initial encounter Qualified Code(s): W19.XXXA - Unspecified fall, initial encounter Is this a current diagnosis for this admission?: Yes Plan: Patient has received extensive trauma work-up in the ER which have turned out to be negative and shows no fractures or bleeding. Accidental fall is secondary to physical deconditioning and bilateral weakness in the lower extremities. She has no new focal neurological deficits concerning for CVA. She denies any preceding palpitations or lightheadedness and denies loss of consciousness. At this point I just recommend physical therapy. She may benefit from placement in assisted living facility or SNF if possible as she currently lives alone and has had multiple falls. Otherwise I have recommended to patient that she stay with her son or her niece for the time being while being followed up by social media marketer to help set up home physical therapy or [facility] or rehab. I have discussed with ER provider to discuss with social media marketer about possible a lternatives for patient given her situation. (3) Sinus tachycardia Is this a current diagnosis for this admission?: Yes Plan: EKG actually does not show atrial fibrillation as P waves are discernible. Does show sinus tachycardia with underlying left bundle branch block. Resume patient's metoprolol. (4) Left bundle branch block Is this a current diagnosis for this admission?: Yes Plan: Old finding on EKG. Secondary to history of CAD. (5) Hyperbilirubinemia Is this a current diagnosis for this admission?: Yes Plan: Bilirubin is 5 today. Does have some transaminitis as well which is only very mild. Interestingly she denies any abdominal pain. Abdominal ultrasound shows cholelithiasis but no evidence of common bile duct dilation. Also no evidence of cholecystitis noted on abdominal ultrasound. I recommended to ER provider to have patient follow-up with emt dispatcher for evaluation for common bile duct obstruction or occult biliary tract malignancy. Patient might require an MRCP or ERCP done either as outpatient or at another facility with ERCP capabilities. At this point, given patient's stable condition and lack of abdominal pain, it can very well be pursued outpa tient. (6) Transaminitis Is this a current diagnosis for this admission?: Yes Plan: As above - Plan Summary Summary: No need to admit patient at this time. - Time Time Spent with patient: 35 or more minutes
[2020-02-12 18:41] VITALS: BP 111/82
--- NOTE | 2020-02-12 21:49 | EKG REPORT ---
SEVERITY:- ABNORMAL ECG - SINUS TACHYCARDIA INCOMPLETE LEFT BUNDLE BRANCH BLOCK LOW VOLTAGE IN FRONTAL LEADS : Confirmed by: Ethan Jeffers MD 12-Feb-2020 21:48:36
== END 2020-02-12 19:03 | disposition home or self-care (01) ==
LOC: ER 07:39
DX: Z04.3 Encounter for examination and observation following other accident (principal); M62.81 Muscle weakness (generalized); I48.20 Chronic atrial fibrillation, unspecified; I25.810 Atherosclerosis of coronary artery bypass graft(s) without angina pectoris; R79.89 Other specified abnormal findings of blood chemistry; R74.0 Nonspecific elevation of levels of transaminase and lactic acid dehydrogenase [LDH]; R74.8 Abnormal levels of other serum enzymes; K80.20 Calculus of gallbladder without cholecystitis without obstruction; M47.816 Spondylosis without myelopathy or radiculopathy, lumbar region; M47.817 Spondylosis without myelopathy or radiculopathy, lumbosacral region; I11.0 Hypertensive heart disease with heart failure; I50.9 Heart failure, unspecified; I44.7 Left bundle-branch block, unspecified; R42 Dizziness and giddiness; R00.0 Tachycardia, unspecified; R01.1 Cardiac murmur, unspecified; J34.89 Other specified disorders of nose and nasal sinuses; I25.2 Old myocardial infarction; Z95.810 Presence of automatic (implantable) cardiac defibrillator; Z87.891 Personal history of nicotine dependence; Z79.899 Other long term (current) drug therapy; Z79.84 Long term (current) use of oral hypoglycemic drugs; Z66 Do not resuscitate
CPT/HCPCS: 93005; 99285; 96360; 96361; 36415; 82553; 82550; 83690; 84443; 85025; 80053; 81001; 84484; 71045; 74018; 76705; 70450; 72125; 72131; 72192; 93010; J7050